=== PATIENT | female | born 1975 | race Caucasian/White ===

== ENCOUNTER 2019-01-09 09:48 | Day surgery (SDC) | payer MEDICAID, MEDICARE ==
[2019-01-09] MEDS ORDERED: Lactated Ringers 1,000 ML IV SCH (10:00)
[2019-01-09] MEDS ORDERED: Midazolam 1 MG/ML 2 ML SDV ONE (10:26)
[2019-01-09] MEDS ORDERED: Propofol 200 MG/20 ML SDV ONE (10:26)
[2019-01-09] MEDS ORDERED: fentaNYL 100 MCG/2 ML SDV ONE (10:26)
[2019-01-09] MEDS ORDERED: Glycopyrrolate 0.2 MG/ML 2 ML SDV IVPUSH ONE (10:30)
[2019-01-09] MEDS ORDERED: Cyanocobalamin (Vitamin B12) 1,000 MCG/ML SDV IM ONE (10:30)
[2019-01-09] MEDS ORDERED: MVI, Adult with Vitamin K 10 ML, Thiamine 100 MG, Chromium/Copper/Mang/Selen/Zn 1 ML in... IV ONE ×4 (11:00)
[2019-01-09] MEDS ORDERED: MVI, Adult with Vitamin K 10 ML, Thiamine 200 MG, Chromium/Copper/Mang/Selen/Zn 1 ML in... IV ONE ×4 (11:00)
[2019-01-09] MEDS ORDERED: Pantoprazole 40 MG Vial IVPUSH ONE (12:04)
--- NOTE | 2019-01-16 15:19 | OR ---
DATE OF PROCEDURE: 01/09/2019 PREOPERATIVE DIAGNOSIS: Probable stricture at gastrojejunostomy. POSTOPERATIVE DIAGNOSIS: Stricture and ulcer at gastrojejunostomy. OPERATIVE PROCEDURE: Upper gastrointestinal endoscopy with dilation of gastrojejunostomy (23910). ANESTHESIA: IV sedation. INDICATION FOR PROCEDURE: This is a 43-year-old female presenting with symptoms suggestive of stricturing at her gastrojejunostomy. She had a Pineda-en-Y gastric bypass on 12/01/2018. The plan is to proceed with upper GI endoscopy with dilation as indicated. Potential risks including bleeding and perforation were discussed, and the patient wishes to proceed. DETAILS OF PROCEDURE: The patient was taken to the operating room, placed in a left lateral decubitus position. IV sedation was administered after which the upper GI endoscope was passed orally through the length of the esophagus and into the gastric pouch. No retained food or fluid was noted. The patient was noted to have a moderately tight stricture at the gastrojejunostomy. This was associated with quite a bit in the way of ulceration on roughly half of the surface of the anastomosis extending somewhat onto the jejunum. A Bard gastrointestinal balloon catheter was then centered across the anastomosis and inflated to 36-[place] size. This was held in position for 1 minute, after which the balloon catheter was deflated and withdrawn. The scope could easily be passed through the anastomosis at this point with no complications noted. The scope was then withdrawn and procedure concluded. The plan will be to give the patient Protonix 40 mg IV in the recovery room and then begin Protonix 40 mg daily, and followup is arranged with Zohra Mijares PA-C, in [facility]. Clifford Rios MD /[id number]
== END 2019-01-09 13:05 | disposition home or self-care (01) ==
LOC: JP.SDS 09:48
PROVIDERS: ATTEND Surgery
DX: K91.89 Other postprocedural complications and disorders of digestive system (principal); E11.43 Type 2 diabetes mellitus with diabetic autonomic (poly)neuropathy; K59.09 Other constipation; A69.20 Lyme disease, unspecified; F43.10 Post-traumatic stress disorder, unspecified; Z91.040 Latex allergy status; Z98.84 Bariatric surgery status; Z79.82 Long term (current) use of aspirin; Z79.84 Long term (current) use of oral hypoglycemic drugs; Z79.899 Other long term (current) drug therapy
CPT/HCPCS: 43245; C9113; J2250; J2704; J3010; J3411; J3420; J3490; J7120

== ENCOUNTER 2019-01-20 07:46 | Observation (INO) | payer MEDICARE, MEDICAID ==
[~2019-01-20 07:46] MED LIST: Cyanocobalamin (Vitamin B12) 1,000 MCG/ML SDV IM ONE; Glycopyrrolate 0.2 MG/ML 2 ML SDV IVPUSH ONE; Lactated Ringers 1,000 ML IV SCH; MVI, Adult with Vitamin K 10 ML, Thiamine 200 MG, Chromium/Copper/Mang/Selen/Zn 1 ML in... IV ONE
[2019-01-20] MEDS ORDERED: Cyanocobalamin (Vitamin B12) 1,000 MCG/ML SDV IM ONE (08:00)
[2019-01-20] MEDS ORDERED: Lactated Ringers 1,000 ML IV SCH (08:00)
[2019-01-20] MEDS ORDERED: fentaNYL 100 MCG/2 ML SDV ONE (09:31)
[2019-01-20] MEDS ORDERED: Propofol 200 MG/20 ML SDV ONE (09:31)
[2019-01-20] MEDS ORDERED: Midazolam 1 MG/ML 2 ML SDV ONE (09:31)
[2019-01-20] MEDS ORDERED: MVI, Adult with Vitamin K 10 ML, Thiamine 200 MG, Chromium/Copper/Mang/Selen/Zn 1 ML in... IV ONE ×8 (10:00)
[2019-01-20] MEDS ORDERED: Scopolamine 1.5 MG Transdermal Patch TOP ONE (12:18)
[2019-01-20] MEDS: Glycopyrrolate 0.2 MG/ML 2 ML SDV IVPUSH ONE ×2 (13:04→15:18)
[2019-01-20] MEDS ORDERED: Ondansetron 4 MG/2 ML SDV IVPUSH PRN (14:11)
[2019-01-20] MEDS ORDERED: SCOPOLAMINE PATCH CHECK TOP SCH (14:12)
[2019-01-20] MEDS ORDERED: HYDROmorphone 2 MG Tab PO PRN (14:14)
[2019-01-20] MEDS ORDERED: Glucose Gel 15 GM in 37.5 GM Tube PO PRN (14:16)
[2019-01-20] MEDS ORDERED: Insulin Lispro 100 Unit/ML 3 ML KwikPen SUBCUT PRN (14:16)
[2019-01-20] MEDS ORDERED: 50% Dextrose in Water 50 ML Syringe IVPUSH PRN (14:16)
[2019-01-20] MEDS ORDERED: Glucagon,Human Recombinant 1 MG Vial IM PRN (14:16)
[2019-01-20] MEDS: MVI, Adult with Vitamin K 10 ML, Chromium/Copper/Mang/Selen/Zn 1 ML in Dextrose 5%-Lact... IV SCH ×3 (15:36)
[2019-01-20] MEDS: Pantoprazole 40 MG Vial IVPUSH SCH (20:16)
[2019-01-20] MEDS: Venlafaxine 75 MG Cap.ER PO SCH (20:17)
[2019-01-20] MEDS ORDERED: Dextrose 5%-Lactated Ringers 1,000 ML IV SCH (21:00)
[2019-01-20] MEDS ORDERED: Doxepin 10 MG Cap PO SCH (21:00)
[2019-01-21] MEDS: MVI, Adult with Vitamin K 10 ML, Chromium/Copper/Mang/Selen/Zn 1 ML in Dextrose 5%-Lact... IV SCH ×3 (01:49)
[2019-01-21] MEDS: Venlafaxine 75 MG Cap.ER PO SCH (08:54)
[2019-01-21] MEDS: Pantoprazole 40 MG Vial IVPUSH SCH (08:54)
[2019-01-21] MEDS ORDERED: Vilazodone 20 MG Tab PO SCH (09:00)
[2019-01-21] MEDS ORDERED: Lisinopril 5 MG Tab PO SCH (09:00)
[2019-01-23] MEDS ORDERED: Scopolamine 1.5 MG Transdermal Patch TOP SCH (10:00)
--- NOTE | 2019-01-23 14:00 | OR ---
DATE OF PROCEDURE: 01/20/2019 PREOPERATIVE DIAGNOSIS: Stricture at gastrojejunostomy. POSTOPERATIVE DIAGNOSIS: Stricture at gastrojejunostomy. PROCEDURE: Upper gastrointestinal endoscopy with dilation of gastrojejunostomy (50720). ANESTHESIA: IV sedation. INDICATION FOR PROCEDURE: This is a 43-year-old status post Pineda-en-Y gastric bypass presenting with stricturing at her gastrojejunostomy. Plan is to proceed with an upper GI endoscopy with dilation as indicated. Potential risks of the procedure including bleeding and perforation were discussed, and the patient wishes to proceed. DETAILS OF PROCEDURE: The patient was taken to the operating room and placed in a left lateral decubitus position. IV sedation was administered, after which the upper GI endoscope was passed orally through the length of the esophagus and into the gastric pouch. No retained food or fluid was noted. The patient was noted to have a quite tight stricture at the gastrojejunostomy. Previously noted ulcer now is essentially healed, but there was a quite tight stricture at the anastomosis. Using fluoroscopic surveillance, a Bard gastrointestinal catheter was centered across the anastomosis and inflated to 30-Romansh size and that was held in position for 1 minute, after which balloon catheter was deflated and withdrawn. The scope could easily then be passed through the anastomosis. No complications were noted. The patient was taken to the recovery room in satisfactory condition. The patient was quite strikingly dehydrated on admission and also quite anxious associated with not being able to take her psychiatric medications. She will therefore be admitted overnight for additional hydration and reinstatement of the psych medications. Clifford Rios MD /[id number]
--- NOTE | 2019-01-24 14:11 | DISCH ---
FINAL DIAGNOSES: 1. Strictured gastrojejunostomy. 2. Marked dehydration. 3. Anxiety related to misuse of psychiatric medications. 4. Type 2 diabetes mellitus, now in remission post gastric bypass. OPERATIVE PROCEDURE: Upper GI endoscopy with dilation of gastrojejunostomy on 01/20/19. HOSPITAL COURSE: This is a 43-year-old, presenting with fairly marked dehydration and inability to maintain much in the way of oral intake, due to stricture of gastrojejunostomy. She had a gastric bypass done in November as an open approach, due to large amount of adhesions due to previous surgeries. She presented with the above findings. This also had been preventing her from taking her psychiatric medications, and she was noted to be quite anxious. Given this, we decided to admit the patient to be sure we are getting adequate oral intake, and the patient will resume her medical management, as well as hopefully rehydrate the patient. Overnight, she has done well and then oral intake is satisfactory. Of note, she had been on metformin previously. She has been off metformin for a period of time, and her admitting blood sugar was 111 and the blood sugars in the postoperative period were 84 and 122, while the patient has been receiving D5 LR, as well as a clear liquid type diet, so it would appear that her diabetes is, at this point, essentially in remission, and we will have her stay off the metformin. Otherwise, she has a scopolamine patch on, which she will be instructed to remove on Wednesday. Otherwise, resume her usual medications. She will be instructed to stay on a step-2 diet for 7 days and then step-3 diet as tolerated. She will be following up with Zohra Mijares on 01/30/2019 at 9:30. The patient will likely need to have additional dilation or dilations of her gastrojejunostomy, and she is instructed to come n.p.o. and with a full service vending driver, if she feels tight at that time; otherwise, call us sooner if need be.
== END 2019-01-21 17:41 | disposition home or self-care (01) ==
LOC: JP.SDS 07:46 → JP.2SS 13:15 → UNDOADMOB 13:15 → JP.2SS 13:15 → JP.SDS 13:15 → JP.2SS 17:41 → UNDODISOB 01-21 09:50 → JP.2SS 01-21 17:41 → JP.SDS 01-21 17:41
PROVIDERS: ADMIT Surgery; ATTEND Surgery
DX: K91.89 Other postprocedural complications and disorders of digestive system (principal); E11.40 Type 2 diabetes mellitus with diabetic neuropathy, unspecified; Z98.84 Bariatric surgery status; F43.10 Post-traumatic stress disorder, unspecified
CPT/HCPCS: 36415; 43245; 80053; 82728; 82962; 83735; 84100; 85027; 94762; A9270; C9113; J2250; J2704; J3010; J3411; J3420; J3490; J7042; J7120

== ENCOUNTER 2019-02-01 09:43 | Day surgery (SDC) | payer MEDICARE ==
[2019-02-01] MEDS ORDERED: Lactated Ringers 1,000 ML IV SCH (10:30)
[2019-02-01] MEDS ORDERED: Cyanocobalamin (Vitamin B12) 1,000 MCG/ML SDV IM ONE (10:30)
[2019-02-01] MEDS ORDERED: Glycopyrrolate 0.2 MG/ML 2 ML SDV IVPUSH ONE (11:00)
[2019-02-01] MEDS ORDERED: fentaNYL 100 MCG/2 ML SDV ONE (11:11)
[2019-02-01] MEDS ORDERED: Propofol 200 MG/20 ML SDV ONE (11:11)
[2019-02-01] MEDS ORDERED: Midazolam 1 MG/ML 2 ML SDV ONE (11:11)
[2019-02-01] MEDS ORDERED: MVI, Adult with Vitamin K 10 ML, Thiamine 200 MG, Chromium/Copper/Mang/Selen/Zn 1 ML in... IV ONE ×4 (11:30)
[2019-02-01] MEDS ORDERED: Dexamethasone 4 MG/ML SDV ONE (11:33)
--- NOTE | 2019-02-08 13:37 | OR ---
DATE OF PROCEDURE: 02/01/2019 PREOPERATIVE DIAGNOSIS: Probable stricture at gastrojejunostomy. POSTOPERATIVE DIAGNOSIS: Tight stricture at gastrojejunostomy. OPERATIVE PROCEDURE: Upper GI endoscopy with dilation of gastrojejunostomy (97013). ANESTHESIA: IV sedation. INDICATIONS FOR PROCEDURE: This is a 43-year-old status post an open Pineda-en-Y gastric bypass on 12/01/2018, presenting with symptoms suggestive of stricturing at her gastrojejunostomy. Plan is to proceed with an upper GI endoscopy with dilation as indicated. Potential risks including bleeding and perforation were discussed, and the patient wishes to proceed. DETAILS OF PROCEDURE: The patient was taken to the operating room and placed in a left lateral decubitus position. IV sedation was administered, after which the upper GI endoscope was passed orally through the length of the esophagus and into the gastric pouch. The patient was found to have quite tight stricture at the gastrojejunostomy. No retained food or fluid was noted above the anastomosis. A Bard gastrointestinal catheter was then centered across the anastomosis and inflated to a 36-Georgian size. This was held in position for 1 minute, after which balloon catheter was deflated and withdrawn. Scope easily was then passed through the anastomosis. No complications were evident. Scope was then withdrawn and procedure concluded. There were no evident complications. Clifford Rios MD /[id number]
== END 2019-02-01 14:00 | disposition home or self-care (01) ==
LOC: JP.SDS 09:43
PROVIDERS: ATTEND Surgery
DX: K91.89 Other postprocedural complications and disorders of digestive system (principal); E11.9 Type 2 diabetes mellitus without complications; F32.9 Major depressive disorder, single episode, unspecified; F43.10 Post-traumatic stress disorder, unspecified; Z98.84 Bariatric surgery status
CPT/HCPCS: 43245; J1100; J2250; J2704; J3010; J3411; J3420; J3490; J7120

== ENCOUNTER 2019-02-13 09:47 | Inpatient (IN) | payer MEDICARE ==
[2019-02-13] MEDS ORDERED: Lactated Ringers 1,000 ML IV SCH (10:45)
[2019-02-13] MEDS ORDERED: Cyanocobalamin (Vitamin B12) 1,000 MCG/ML SDV IM ONE (10:45)
[2019-02-13] MEDS ORDERED: Propofol 200 MG/20 ML SDV ONE ×2 (11:06→14:17)
[2019-02-13] MEDS ORDERED: Midazolam 1 MG/ML 2 ML SDV ONE (11:06)
[2019-02-13] MEDS ORDERED: fentaNYL 100 MCG/2 ML SDV ONE (11:06)
[2019-02-13] MEDS ORDERED: MVI, Adult with Vitamin K 10 ML, Thiamine 200 MG, Chromium/Copper/Mang/Selen/Zn 1 ML in... IV ONE ×8 (11:45)
[2019-02-13] MEDS ORDERED: Lactated Ringers 0 ML ONE (12:16)
--- NOTE | 2019-02-13 12:41 | OR ---
DATE OF PROCEDURE: 02/13/2019 PREOPERATIVE DIAGNOSIS: Gastrojejunostomy stricture. POSTOPERATIVE DIAGNOSIS: Gastrojejunostomy stricture. PROCEDURE: Esophagogastrojejunoscopy with dilation of gastrojejunostomy with a 36-Armenian balloon. SURGEON: Leroy Fish MD. ANESTHESIA: IV anesthesia with monitored anesthesia care. INDICATION: This 43-year-old white female underwent a Pineda-en-Y gastric bypass for morbid obesity in November of this year. Since then, she has had four gastro- dilatations due to recurrent strictures. She again is unable to take down food, only liquids. She is referred for a gastro-dil. I counseled her for this, including risks and alternatives, and she gave her informed consent to proceed. DESCRIPTION OF PROCEDURE: The patient was placed in the left lateral decubitus position. IV anesthesia was administered by the Anesthesia Service. Time-out was held. The flexible video Olympus upper endoscope was passed through her mouth, down her esophagus, and into the gastric remnant. This was very small. The anastomosis was quite tight. The scope could not pass through it. Under fluoroscopy, we passed a balloon beyond it and blew it up for 1 minute. This with a 36-Armenian balloon. The balloon was deflated and removed. We were then able to pass the scope beyond it. She tolerated the procedure well and was taken from the operating room in a good condition. Leroy Fish MD /[id number]
[2019-02-13] MEDS ORDERED: Iopamidol 612 MG/ML 150 ML Bottle IV PRN (12:42)
[2019-02-13] MEDS ORDERED: Sodium Chloride 0.9% 10 ML Syringe FLUSH PRN (12:42)
--- NOTE | 2019-02-13 14:01 | CT ---
Chest Abdomen Pelvis w Cont CLINICAL HISTORY: Chest and neck pain TECHNIQUE: Thin section axial contiguous tomographic sections were taken through the chest after 100 mL bolus IV iodinated contrast administration. Coronal and sagittal images were reconstructed. Auto dosage reduction and iterative reconstruction techniques employed. FINDINGS: No infiltrates are seen. There is a 6 mm nonsolid appearing nodule in the right upper lobe on image #42 there is a punctate calcification in the left posterior costophrenic angle. The mediastinum shows no mass or adenopathy. No free air is seen. Impression: Small nodular density in the right upper lobe described above. Follow-up using Fleischner Society criteria recommended There is a large amount of free air under the hemidiaphragm Chest Abdomen Pelvis w Cont CLINICAL HISTORY: Neck and shoulder pain COMPARISON: None. TECHNIQUE: Axial tomographic images are obtained from the dome of the diaphragm to the pubic symphysis with IV contrast enhancement. No oral contrast was used. Auto dosage reduction and iterative reconstruction techniques employed. FINDINGS: There is a moderate amount of free intraperitoneal air anterior to the liver and near the diaphragmatic amada. There is no dissection of air into the mediastinum. Patient has had previous abdominal surgery. There is soft tissue density in the periumbilical region some of which may be scarring. There may be a small fluid collection associated with the surgical scar. There is a moderate-sized ventral hernia in the left lower quadrant containing colon. There is no evidence of incarceration. The liver has a normal size and shape. The gallbladder is dilated. There are some small stones. The spleen is enlarged. The pancreas shows no mass or inflammatory change.. The adrenal glands appear normal bilaterally. The kidneys show no mass, stones or hydronephrosis. The aorta shows no aneurysm. There is no suspicious retroperitoneal adenopathy. IMPRESSION: There is a moderate amount of free intraperitoneal air consistent with the perforated viscus Previous abdominal surgery with the soft tissue density just above the umbilicus. Much of this appears to be scarring. There may be a small central fluid collection Moderate-sized left lower quadrant ventral hernia containing predominantly colon. Dilated gallbladder with gallstones. No biliary ductal dilatation identified Dr. Wilkins was notified at the time of this dictation
[2019-02-13] MEDS ORDERED: Succinylcholine 200 MG/10 ML MDV ONE (14:17)
[2019-02-13] MEDS ORDERED: Rocuronium 50 MG/5 ML Vial ONE (14:17)
[2019-02-13] MEDS ORDERED: Glycopyrrolate 0.2 MG/ML 5 ML MDV ONE (14:17)
[2019-02-13] MEDS ORDERED: Neostigmine Methylsulfate 1 MG/ML 5 ML Syringe ONE (14:17)
[2019-02-13] MEDS ORDERED: Dexamethasone 4 MG/ML SDV ONE (14:17)
[2019-02-13] MEDS ORDERED: Ondansetron 4 MG/2 ML SDV ONE (14:17)
[2019-02-13] MEDS ORDERED: fentaNYL 250 MCG/5 ML SDV ONE ×2 (14:18→14:57)
[2019-02-13] MEDS ORDERED: ceFAZolin 2 GM in Premix Bag 1 BAG IV ONE (14:30)
[2019-02-13] MEDS ORDERED: hydrOXYzine HCl 100 MG/2 ML SDV IM ONE (16:28)
[2019-02-13] MEDS ORDERED: Ondansetron 4 MG/2 ML SDV IVPUSH PRN (17:00)
[2019-02-13] MEDS ORDERED: hydrOXYzine HCl 100 MG/2 ML SDV IM PRN (17:34)
[2019-02-13] MEDS ORDERED: HYDROmorphone/Normal Saline 15 MG/30 ML PCA IV SCH (17:45)
[2019-02-13] MEDS ORDERED: Naloxone 0.4 MG/ML SDV IV PRN (17:48)
[2019-02-13] MEDS: D5 1/2 NS w/ 20 mEq/L KCl 1,000 ML IV SCH (18:46)
[2019-02-13] MEDS: Pantoprazole 40 MG Vial IVPUSH SCH (18:46)
[2019-02-14] MEDS: D5 1/2 NS w/ 20 mEq/L KCl 1,000 ML IV SCH ×3 (02:45→17:57)
[2019-02-14] MEDS ORDERED: HYDROmorphone/Normal Saline 15 MG/30 ML PCA IV PRN (07:09)
--- NOTE | 2019-02-14 07:52 | OR ---
DATE OF PROCEDURE: 02/13/2019 PREOPERATIVE DIAGNOSIS: Pneumoperitoneum after gastro dilatation. POSTOPERATIVE DIAGNOSES: Multiple adhesions, pneumoperitoneum after gastro dilatation. PROCEDURE: Laparoscopic converted to open laparotomy with lysis of adhesions, Tisseel fibrin sealant application, drainage. SURGEON: Leroy Fish MD ANESTHESIA: General endotracheal. INDICATION: This 43-year-old white female underwent a Pineda-en-Y gastric bypass in November of this year for morbid obesity. Since then, she has had 4 prior gastro dilatations. She is referred today for another one of these. She is unable to keep any solid food down. She retches it up. Liquid is starting to cause her problems, although she is basically able to get liquids down. A request was made for gastro dilatation, I counseled her for this, including risks and alternatives, and she gave her informed consent to proceed. We then proceeded with a gastro dilatation, and it was quite an easy procedure. This was so tight, the scope could not go through. We performed a 36-[place] balloon dilatation. In the recovery room, she complained of shoulder pain and neck pain. Her abdomen felt fine. We obtained a CT scan of her chest, abdomen, and pelvis that showed free air in her abdomen. There was no mediastinal air. She was taken to the operating room for an abdominal exploration, hopefully laparoscopically, although she was counseled for possible laparotomy, and she gave her informed consent to proceed. DESCRIPTION OF PROCEDURE: After adequate general endotracheal anesthesia was obtained, a Xiao catheter was placed, and she was placed in the low lithotomy. Her abdomen was prepped and draped in the usual sterile fashion. She has a large midline incision, and she has had a prior hysterectomy for uterine cancer with 2 attempts at incisional hernia repair. The CAT scan shows she has a large incisional hernia in her lower abdomen. Time-out was held. An incision was made to the left of the midline, and then through this, a 10 mm port was placed using the Optiview technique. The camera was introduced into the abdomen and the abdomen was insufflated to a pressure of 15 mmHg with carbon dioxide. No evidence of intraabdominal injury was seen. We noted that we were below the [place] stomach. There were a great deal of adhesions present. We attempted to negotiate up into the upper abdomen. We did manage to see the spleen at one point, but it was clear we were not going to be able to do this laparoscopically, as there would be no place safe to place additional ports. The port was then removed, and an upper midline incision was made. This was carried deep to the fascia using Bovie cautery. The fascia was incised, and the underlying peritoneum was elevated and incised. The peritoneal and fascial incisions were extended the length of the skin incision using Bovie cautery, while protecting underlying structures. We dissected a lot of adhesions in the upper abdomen. We could not see any evidence of a perforation. It was very difficult to visualize. We filled the abdomen with saline and Anesthesia injected air into the esophagus and we saw no leakage. With this, we aspirated saline from the abdomen. We placed Tisseel fibrin sealant up in her upper abdomen around the Pnieda-Y limb. The omentum, which had been dissected free, was placed in the upper abdomen and held there with 3-0 Vicryl suture. Two Rafat-El drains were obtained and brought out on each side through separate incisions and placed up on each side in the upperabdomen of the Pineda limb. The incision was then closed with a running stitch of #2 Vicryl used to approximate the fascia. The incision was irrigated and dried. Skin mame were placed to approximate the skin. The anesthesia was reversed. She was extubated and brought to recovery room in fair condition. Leroy Fish MD /[id number]
[2019-02-14] MEDS ORDERED: LORazepam 2 MG/ML SDV IVPUSH PRN (13:10)
--- NOTE | 2019-02-14 16:27 | PCM.SURGPN ---
- General Info Date of Service: 02/14/19 Date of Surgery/Procedure: 02/13/19 POD#: 1 Post-Op Diagnosis: Perforated small bowel Functional Status: Reports: Ambulating, Urinating. Denies: Pain Controlled ( She has pain, but not too bad. ), Tolerating Diet (NPO) - Review of Systems General: Denies: Fever, Chills HEENT: Reports: No Symptoms Pulmonary: Reports: No Symptoms Cardiovascular: Reports: No Symptoms Gastrointestinal: Reports: Abdominal Pain (Epigastrium and left lower quadrant ( at laparoscopy port)). Denies: Flatus, Nausea, Vomiting Genitourinary: Reports: No Symptoms (Wants Xiao out) Musculoskeletal: Reports: No Symptoms Skin: Reports: No Symptoms Neurological: Reports: No Symptoms Psychiatric: Reports: No Symptoms - Patient Data Vitals - Most Recent: Last Vital Signs Temp 98.6 F 02/14/19 15:40 Pulse 81 02/14/19 15:40 Resp 18 02/14/19 15:40 BP 116/72 02/14/19 15:40 Pulse Ox 100 02/14/19 15:40 Weight - Most Recent: 251 lb 15.99 oz I&O - Last 24 Hours: Intake & Output 02/14/19 02/14/19 02/14/19 06:59 14:59 22:59 Intake Total 1405 Output Total 925 405 Balance 480 -405 Lab Results Last 24 Hrs: Laboratory Results - last 24 hr 02/14/19 02/14/19 Range/Units 04:30 04:30 WBC 9.9 (4.5-11.0) K/uL RBC 4.62 (3.30-5.50) M/uL Hgb 13.0 (12.0-15.0) g/dL Hct 41.0 (36.0-48.0) % MCV 89 (80-98) fL MCH 28 (27-31) pg MCHC 32 (32-36) % Plt Count 237 (150-400) K/uL Sodium 139 L (140-148) mmol/L Potassium 4.2 (3.6-5.2) mmol/L Chloride 104 (100-108) mmol/L Carbon Dioxide 28 (21-32) mmol/L Anion Gap 11.2 (5.0-14.0) mmol/L BUN 16 (7-18) mg/dL Creatinine 0.9 (0.6-1.0) mg/dL Est Cr Clr Drug Dosing 72.53 mL/min Estimated GFR (MDRD) > 60 (>60) Glucose 190 H (74-106) mg/dL Calcium 8.9 (8.5-10.1) mg/dL Med Orders - Current: Current Medications Hydromorphone HCl (Dilaudid Trade Mark Examiner 15 Mg In Ns 30 Ml) 0 mg IV ASDIRECTED PRN; Protocol PRN Reason: Pain Hydroxyzine HCl (Vistaril) 50 - 75 mg IM Q6H PRN PRN Reason: Pain Lactated Ringer's (Ringers, Lactated) 1,000 mls @ 999 mls/hr IV ASDIRECTED [facility] Last Admin: 02/13/19 10:29 Dose: 999 mls/hr Potassium Chloride/Dextrose/Sod Cl (D5 1/2 Ns W/ 20 Meq/L Kcl) 1,000 mls @ 125 mls/hr IV ASDIRECTED [facility] Last Admin: 02/14/19 10:34 Dose: 125 mls/hr Lorazepam (Ativan) 1 mg IVPUSH Q4H PRN PRN Reason: Anxiety Naloxone HCl (Narcan) 0.1 mg IV ASDIRECTED PRN PRN Reason: decreased respiratory rate Ondansetron HCl (Zofran) 4 mg IVPUSH Q6H PRN PRN Reason: Nausea/Vomiting Pantoprazole Sodium (Protonix Iv) 40 mg IVPUSH Q24H [facility] Last Admin: 02/13/19 18:46 Dose: 40 mg Discontinued Medications Cyanocobalamin (Vitamin B12) 1,000 mcg IM ONETIME ONE Stop: 02/13/19 10:46 Last Admin: 02/13/19 10:30 Dose: 1,000 mcg Dexamethasone (Dexamethasone) Confirm Administered Dose 4 mg .ROUTE .STK-MED ONE Stop: 02/13/19 14:18 Fentanyl (Sublimaze) Confirm Administered Dose 100 mcg .ROUTE .STK-MED ONE Stop: 02/13/19 11:07 Fentanyl (Sublimaze) Confirm Administered Dose 250 mcg .ROUTE .STK-MED ONE Stop: 02/13/19 14:19 Fentanyl (Sublimaze) Confirm Administered Dose 250 mcg .ROUTE .STK-MED ONE Stop: 02/13/19 14:58 Glycopyrrolate (Robinul) Confirm Administered Dose 1 mg .ROUTE .STK-MED ONE Stop: 02/13/19 14:18 Hydromorphone HCl (Dilaudid Trade Mark Examiner 15 Mg In Ns 30 Ml) 15 mg IV ASDIRECTED [facility]; Protocol Last Admin: 02/13/19 18:05 Dose: 15 mg Hydroxyzine HCl (Vistaril) 100 mg IM ONETIME ONE Stop: 02/13/19 16:29 Last Admin: 02/13/19 16:32 Dose: 100 mg Multivitamins/Minerals 10 ml/Thiamine HCl 200 mg/ Chromium/Copper/Manganese/ Seleni/Zn 1 ml/ Lactated Ringer's 1,013 mls @ 500 mls/hr IV ONETIME ONE Stop: 02/13/19 13:46 Last Admin: 02/13/19 11:24 Dose: 500 mls/hr Lactated Ringer's (Ringers, Lactated) Confirm Administered Dose 1,000 mls @ as directed .ROUTE .STK-MED ONE Stop: 02/13/19 12:17 Sodium Chloride (Normal Saline) 85 mls @ 3.5 mls/sec IV ASDIRECTED [facility] Stop: 02/13/19 12:46 Last Admin: 02/13/19 13:12 Dose: 3.5 mls/sec Cefazolin Sodium/Dextrose 2 gm (/ Premix) 50 mls @ 100 mls/hr IV ONETIME ONE Stop: 02/13/19 14:59 Last Admin: 02/13/19 14:23 Dose: 100 mls/hr Iopamidol (Isovue-300 (61%)) 150 ml IV . DIRECTED PRN PRN Reason: RADIOLOGY EXAM Stop: 02/14/19 12:43 Last Admin: 02/13/19 13:12 Dose: 150 ml Midazolam HCl (Versed 1 Mg/Ml) Confirm Administered Dose 2 mg .ROUTE .STK-MED ONE Stop: 02/13/19 11:07 Neostigmine Methylsulfate (Neostigmine) Confirm Administered Dose 5 mg .ROUTE .STK-MED ONE Stop: 02/13/19 14:18 Ondansetron HCl (Zofran) Confirm Administered Dose 4 mg .ROUTE .STK-MED ONE Stop: 02/13/19 14:18 Propofol (Diprivan 20 Ml) Confirm Administered Dose 200 mg .ROUTE .STK-MED ONE Stop: 02/13/19 11:07 Propofol (Diprivan 20 Ml) Confirm Administered Dose 200 mg .ROUTE .STK-MED ONE Stop: 02/13/19 14:18 Rocuronium [place] (Zemuron) Confirm Administered Dose 50 mg .ROUTE .STK-MED ONE Stop: 02/13/19 14:18 Sodium Chloride (Saline Flush) 10 ml FLUSH ONETIME PRN PRN Reason: per radiology protocol Stop: 02/13/19 12:43 Last Admin: 02/13/19 13:10 Dose: 10 ml Succinylcholine Chloride (Quelicin) Confirm Administered Dose 200 mg .ROUTE .STK -MED ONE Stop: 02/13/19 14:18 - Exam Wound/Incisions: Healing Well, Dressing Dry and Intact Quality Assessment: Supplemental Oxygen, Urine Catheter (Removed. ) General: Alert, Oriented, Cooperative, No Acute Distress (Was distressed earlier when walking, wants Effexor. ) Lungs: Clear to Auscultation, Normal Respiratory Effort Cardiovascular: Regular Rate, Regular Rhythm GI/Abdominal Exam: Abnormal Bowel Sounds (Quiet. ). No: Normal Bowel Sounds Extremities: Normal Inspection Skin: Warm, Dry, Intact Psy/Mental Status: Alert, Normal Affect, Normal Mood (Now, earlier was crying. ) - Problem List & Annotations (1) Status post exploratory laparotomy SNOMED Code(s): 584584335, 19978798, 349571404 Code(s): Z98.890 - OTHER SPECIFIED POSTPROCEDURAL STATES Status: Acute Current Visit: Yes Annotation/Comment:: Lysis of adhesion, - Problem List Review Problem List Initiated/Reviewed/Updated: Yes - My Orders Last 24 Hours: Active Orders 24 hr Category Date Time Status Patient Status [ADT] Routine ADT 02/13/19 17:00 Active Ambulate [RC] ASDIRECTED Care 02/13/19 17:00 Active Antiembolic Devices [RC] .Routine Care 02/13/19 17:05 Active Dorsiflex/Plantar flex x 10 [RC] QSHIFT Care 02/13/19 17:00 Active Drain Management [RC] QSHIFT Care 02/13/19 17:03 Active Head of Bed Elevation [RC] CONTINUOUS Care 02/13/19 17:00 Active Intake and Output [RC] .PRN Care 02/13/19 17:02 Active Notify Provider Intake and Out [RC] .PRN Care 02/13/19 17:03 Active Notify Provider Vital Signs [RC] .PRN Care 02/13/19 17:02 Active Oxygen Therapy [RC] .PRN Care 02/13/19 17:00 Active Pneumonia Education [RC] UPON Care 02/13/19 17:00 Active Pulse Oximetry [RC] CONTINUOUS Care 02/13/19 17:03 Active Turn, Cough, Deep Breathe [RC] Q1HWA Care 02/13/19 17:00 Active Up With Assistance [RC] ASDIRECTED Care 02/13/19 17:00 Active Up to Chair [RC] TIDMEALS Care 02/13/19 17:00 Active VTE/DVT Education [RC] Click to Edit Care 02/13/19 17:05 Active Vital Signs [RC] Q4H Care 02/13/19 17:00 Active Consult to Diabetic Nurse Specialist [CONS] Routine Cons 02/13/19 17:12 Active Respiratory Care Assess and Treatment [CONS] Routine Cons 02/13/19 17:00 Active Nothing Per Oral Diet [DIET] Diet 02/13/19 Dinner Active BASIC METABOLIC PANEL,BMP [CHEM] DAILY Lab 02/15/19 05:11 Ordered BASIC METABOLIC PANEL,BMP [CHEM] DAILY Lab 02/16/19 05:11 Ordered BASIC METABOLIC PANEL,BMP [CHEM] DAILY Lab 02/17/19 05:11 Ordered BASIC METABOLIC PANEL,BMP [CHEM] DAILY Lab 02/18/19 05:11 Ordered CBC W/O DIFF,HEMOGRAM [HEME] DAILY Lab 02/15/19 05:11 Ordered CBC W/O DIFF,HEMOGRAM [HEME] DAILY Lab 02/16/19 05:11 Ordered CBC W/O DIFF,HEMOGRAM [HEME] DAILY Lab 02/17/19 05:11 Ordered CBC W/O DIFF,HEMOGRAM [HEME] DAILY Lab 02/18/19 05:11 Ordered D5 1/2 NS w/ 20 mEq/L KCl 1,000 ml Med 02/13/19 17:15 Active IV ASDIRECTED HYDROmorphone/Normal Saline [Dilaudid SURGICAL GARMENT ASSEMBLY SUPERVISOR 15 MG in NS Med 02/14/19 07:09 Active 30 ML] 0 mg IV ASDIRECTED PRN LORazepam [Ativan] Med 02/14/19 13:10 Active 1 mg IVPUSH Q4H PRN Naloxone [Narcan] Med 02/13/19 17:48 Active 0.1 mg IV ASDIRECTED PRN Ondansetron [Zofran] Med 02/13/19 17:00 Active 4 mg IVPUSH Q6H PRN Pantoprazole [ProTONIX IV] Med 02/13/19 18:00 Active 40 mg IVPUSH Q24H hydrOXYzine HCl [Vistaril] Med 02/13/19 17:34 Active 50 - 75 mg IM Q6H PRN Abdominal Binder [OM.PC] Per Unit Routine Oth 02/13/19 17:02 Ordered DVT/VTE Prophylaxis Reflex [OM.PC] Per Unit Routine Oth 02/13/19 17:05 Ordered Sequential Compression Device [OM.PC] Routine Oth 02/13/19 17:00 Ordered Resuscitation Status Routine Resus Stat 02/13/19 17:00 Ordered Medication Orders Hydromorphone HCl (Dilaudid Trade Mark Examiner 15 Mg In Ns 30 Ml) 0 mg IV ASDIRECTED PRN; Protocol PRN Reason: Pain Hydroxyzine HCl (Vistaril) 50 - 75 mg IM Q6H PRN PRN Reason: Pain Lactated Ringer's (Ringers, Lactated) 1,000 mls @ 999 mls/hr IV ASDIRECTED [facility] Last Admin: 02/13/19 10:29 Dose: 999 mls/hr Potassium Chloride/Dextrose/Sod Cl (D5 1/2 Ns W/ 20 Meq/L Kcl) 1,000 mls @ 125 mls/hr IV ASDIRECTED [facility] Last Admin: 02/14/19 10:34 Dose: 125 mls/hr Infusion: 02/14/19 10:34 Dose: 125 mls/hr Admin: 02/14/19 02:45 Dose: 125 mls/hr Infusion: 02/14/19 02:45 Dose: 125 mls/hr Admin: 02/13/19 18:46 Dose: 125 mls/hr Lorazepam (Ativan) 1 mg IVPUSH Q4H PRN PRN Reason: Anxiety Naloxone HCl (Narcan) 0.1 mg IV ASDIRECTED PRN PRN Reason: decreased respiratory rate Ondansetron HCl (Zofran) 4 mg IVPUSH Q6H PRN PRN Reason: Nausea/Vomiting Pantoprazole Sodium (Protonix Iv) 40 mg IVPUSH Q24H [facility] Last Admin: 02/13/19 18:46 Dose: 40 mg - Assessment Assessment (Free Text/Narrative):: WBC normal and no fever. She looks well. She was upset earlier as she can not have her Effexor and we have no substitute IV. - Plan Plan (Free Text/Narrative):: Trial of Ativan PRN. D/C Dameon (done). Continue NPO.
[2019-02-14] MEDS: Pantoprazole 40 MG Vial IVPUSH SCH (17:57)
[2019-02-14] MEDS: Piperacillin/Tazobactam 3.375 GM in Sodium Chloride 0.9% 50 ML IV SCH (22:43)
[2019-02-15] MEDS: diphenhydrAMINE 50 MG/ML SDV IVPUSH PRN ×2 (00:25→05:13)
[2019-02-15] MEDS: D5 1/2 NS w/ 20 mEq/L KCl 1,000 ML IV SCH ×2 (02:39→21:21)
[2019-02-15] MEDS: Piperacillin/Tazobactam 3.375 GM in Sodium Chloride 0.9% 50 ML IV SCH (03:40)
[2019-02-15] MEDS: Piperacillin/Tazobactam/Dext 3.375 GM in Premix Bag 1 BAG IV SCH ×3 (09:41→22:17)
--- NOTE | 2019-02-15 13:52 | PCM.SURGPN ---
- General Info Date of Service: 02/15/19 Date of Surgery/Procedure: 02/13/19 POD#: 2 Post-Op Diagnosis: Perforated gastrojejunostomy. Functional Status: Reports: Pain Controlled, Ambulating, Urinating - Review of Systems General: Reports: Other (Itching. Pain is less) HEENT: Reports: No Symptoms Pulmonary: Reports: No Symptoms Cardiovascular: Reports: No Symptoms Gastrointestinal: Denies: Flatus Genitourinary: Reports: No Symptoms Musculoskeletal: Reports: No Symptoms Skin: Reports: No Symptoms Neurological: Reports: No Symptoms Psychiatric: Reports: No Symptoms, Other (Understands that we have no IV substitute for Effexor.) - Patient Data Vitals - Most Recent: Last Vital Signs Temp 98.2 F 02/15/19 11:03 Pulse 89 02/15/19 11:03 Resp 16 02/15/19 11:03 BP 109/69 02/15/19 11:03 Pulse Ox 91 L 02/15/19 12:29 Weight - Most Recent: 251 lb 15.99 oz I&O - Last 24 Hours: Intake & Output 02/14/19 02/15/19 02/15/19 22:59 06:59 14:59 Intake Total 1765 1293 50 Output Total 445 880 440 Balance 1320 413 -390 Lab Results Last 24 Hrs: Laboratory Results - last 24 hr 02/14/19 02/15/19 02/15/19 Range/Units 22:00 05:56 05:56 WBC 9.6 (4.5-11.0) K/uL RBC 4.59 (3.30-5.50) M/uL Hgb 13.1 (12.0-15.0) g/dL Hct 41.9 (36.0-48.0) % MCV 91 (80-98) fL MCH 29 (27-31) pg MCHC 31 L (32-36) % Plt Count 307 (150-400) K/uL Sodium 139 L (140-148) mmol/L Potassium 4.0 (3.6-5.2) mmol/L Chloride 106 (100-108) mmol/L Carbon Dioxide 27 (21-32) mmol/L Anion Gap 10.0 (5.0-14.0) mmol/L BUN 7 D (7-18) mg/dL Creatinine 1.1 H (0.6-1.0) mg/dL Est Cr Clr Drug Dosing 59.24 mL/min Estimated GFR (MDRD) 54 L (>60) Glucose 165 H (74-106) mg/dL Calcium 9.0 (8.5-10.1) mg/dL Urine Color Yellow Urine Appearance Cloudy Urine pH 5.0 (4.5-8.0) Ur Specific [place] 1.015 (1.008-1.030) Urine Protein Negative (NEGATIVE) mg/dL Urine Glucose (UA) Normal (NEGATIVE) mg/dL Urine Ketones Negative (NEGATIVE) mg/dL Urine Occult Blood Negative (NEGATIVE) Urine Nitrite Negative (NEGATIVE) Urine Bilirubin Negative (NEGATIVE) Urine Urobilinogen Normal (NORMAL) mg/dL Ur Leukocyte Esterase Negative (NEGATIVE) Urine RBC 0-5 (0-5) Urine WBC 0-5 (0-5) Ur Epithelial Cells Few Amorphous Sediment Not seen Urine Bacteria Few Urine Mucus Moderate Med Orders - Current: Current Medications Diphenhydramine HCl (Benadryl) 25 - 50 mg IVPUSH Q4H PRN PRN Reason: Itching Last Admin: 02/15/19 05:13 Dose: 50 mg Hydromorphone HCl (Dilaudid Activity Therapy Teacher 15 Mg In Ns 30 Ml) 0 mg IV ASDIRECTED PRN; Protocol PRN Reason: Pain Last Admin: 02/15/19 10:09 Dose: 15 mg Hydroxyzine HCl (Vistaril) 50 - 75 mg IM Q6H PRN PRN Reason: Pain Lactated Ringer's (Ringers, Lactated) 1,000 mls @ 999 mls/hr IV ASDIRECTED [facility] Last Admin: 02/13/19 10:29 Dose: 999 mls/hr Potassium Chloride/Dextrose/Sod Cl (D5 1/2 Ns W/ 20 Meq/L Kcl) 1,000 mls @ 125 mls/hr IV ASDIRECTED [facility] Last Admin: 02/15/19 02:39 Dose: 125 mls/hr Piperacillin/Tazobactam/ (Dextrose 3.375 gm/ Premix) 50 mls @ 100 mls/hr IV Q6H [facility] Last Admin: 02/15/19 09:41 Dose: 100 mls/hr Lorazepam (Ativan) 1 mg IVPUSH Q4H PRN PRN Reason: Anxiety Naloxone HCl (Narcan) 0.1 mg IV ASDIRECTED PRN PRN Reason: decreased respiratory rate Ondansetron HCl (Zofran) 4 mg IVPUSH Q6H PRN PRN Reason: Nausea/Vomiting Pantoprazole Sodium (Protonix Iv) 40 mg IVPUSH Q24H [facility] Last Admin: 02/14/19 17:57 Dose: 40 mg Discontinued Medications Cyanocobalamin (Vitamin B12) 1,000 mcg IM ONETIME ONE Stop: 02/13/19 10:46 Last Admin: 02/13/19 10:30 Dose: 1,000 mcg Dexamethasone (Dexamethasone) Confirm Administered Dose 4 mg .ROUTE .STK-MED ONE Stop: 02/13/19 14:18 Fentanyl (Sublimaze) Confirm Administered Dose 100 mcg .ROUTE .STK-MED ONE Stop: 02/13/19 11:07 Fentanyl (Sublimaze) Confirm Administered Dose 250 mcg .ROUTE .STK-MED ONE Stop: 02/13/19 14:19 Fentanyl (Sublimaze) Confirm Administered Dose 250 mcg .ROUTE .STK-MED ONE Stop: 02/13/19 14:58 Glycopyrrolate (Robinul) Confirm Administered Dose 1 mg .ROUTE .STK-MED ONE Stop: 02/13/19 14:18 Hydromorphone HCl (Dilaudid Activity Therapy Teacher 15 Mg In Ns 30 Ml) 15 mg IV ASDIRECTED [facility]; Protocol Last Admin: 02/13/19 18:05 Dose: 15 mg Hydroxyzine HCl (Vistaril) 100 mg IM ONETIME ONE Stop: 02/13/19 16:29 Last Admin: 02/13/19 16:32 Dose: 100 mg Multivitamins/Minerals 10 ml/Thiamine HCl 200 mg/ Chromium/Copper/Manganese/ Seleni/Zn 1 ml/ Lactated Ringer's 1,013 mls @ 500 mls/hr IV ONETIME ONE Stop: 02/13/19 13:46 Last Admin: 02/13/19 11:24 Dose: 500 mls/hr Lactated Ringer's (Ringers, Lactated) Confirm Administered Dose 1,000 mls @ as directed .ROUTE .STK-MED ONE Stop: 02/13/19 12:17 Sodium Chloride (Normal Saline) 85 mls @ 3.5 mls/sec IV ASDIRECTED [facility] Stop: 02/13/19 12:46 Last Admin: 02/13/19 13:12 Dose: 3.5 mls/sec Cefazolin Sodium/Dextrose 2 gm (/ Premix) 50 mls @ 100 mls/hr IV ONETIME ONE Stop: 02/13/19 14:59 Last Admin: 02/13/19 14:23 Dose: 100 mls/hr Piperacillin Sod/Tazobactam (Sod 3.375 gm/ Sodium Chloride) 50 mls @ 100 mls/ hr IV Q6H [facility] Last Admin: 02/15/19 03:40 Dose: 100 mls/hr Iopamidol (Isovue-300 (61%)) 150 ml IV . DIRECTED PRN PRN Reason: RADIOLOGY EXAM Stop: 02/14/19 12:43 Last Admin: 02/13/19 13:12 Dose: 150 ml Midazolam HCl (Versed 1 Mg/Ml) Confirm Administered Dose 2 mg .ROUTE .STK-MED ONE Stop: 02/13/19 11:07 Neostigmine Methylsulfate (Neostigmine) Confirm Administered Dose 5 mg .ROUTE .STK-MED ONE Stop: 02/13/19 14:18 Ondansetron HCl (Zofran) Confirm Administered Dose 4 mg .ROUTE .STK-MED ONE Stop: 02/13/19 14:18 Propofol (Diprivan 20 Ml) Confirm Administered Dose 200 mg .ROUTE .STK-MED ONE Stop: 02/13/19 11:07 Propofol (Diprivan 20 Ml) Confirm Administered Dose 200 mg .ROUTE .STK-MED ONE Stop: 02/13/19 14:18 Rocuronium [place] (Zemuron) Confirm Administered Dose 50 mg .ROUTE .STK-MED ONE Stop: 02/13/19 14:18 Sodium Chloride (Saline Flush) 10 ml FLUSH ONETIME PRN PRN Reason: per radiology protocol Stop: 02/13/19 12:43 Last Admin: 02/13/19 13:10 Dose: 10 ml Succinylcholine Chloride (Quelicin) Confirm Administered Dose 200 mg .ROUTE .STK -MED ONE Stop: 02/13/19 14:18 - Exam Wound/Incisions: Healing Well Quality Assessment: DVT Prophylaxis General: Alert, Oriented, Cooperative, No Acute Distress (Much better today.) Lungs: Clear to Auscultation Cardiovascular: Regular Rate GI/Abdominal Exam: Abnormal Bowel Sounds (Hypoactive) Extremities: Normal Inspection Skin: Warm, Dry, Intact Neurological: No New Focal Deficit Psy/Mental Status: Alert, Normal Affect, Normal Mood (Mood is much improved. ) - Problem List & Annotations (1) Status post exploratory laparotomy SNOMED Code(s): 603858877, 53164307, 580611935 Code(s): Z98.890 - OTHER SPECIFIED POSTPROCEDURAL STATES Status: Acute Current Visit: Yes Annotation/Comment:: Lysis of adhesion, - Problem List Review Problem List Initiated/Reviewed/Updated: Yes - My Orders Last 24 Hours: Active Orders 24 hr Category Date Time Status May Shower [RC] ASDIRECTED Care 02/15/19 09:32 Active BASIC METABOLIC PANEL,BMP [CHEM] DAILY Lab 02/16/19 05:11 Ordered BASIC METABOLIC PANEL,BMP [CHEM] DAILY Lab 02/17/19 05:11 Ordered BASIC METABOLIC PANEL,BMP [CHEM] DAILY Lab 02/18/19 05:11 Ordered CBC W/O DIFF,HEMOGRAM [HEME] DAILY Lab 02/16/19 05:11 Ordered CBC W/O DIFF,HEMOGRAM [HEME] DAILY Lab 02/17/19 05:11 Ordered CBC W/O DIFF,HEMOGRAM [HEME] DAILY Lab 02/18/19 05:11 Ordered CULTURE BLOOD [BC] Urgent Lab 02/14/19 21:35 Received CULTURE BLOOD [BC] Urgent Lab 02/14/19 21:45 Received LORazepam [Ativan] Med 02/14/19 13:10 Active 1 mg IVPUSH Q4H PRN Piperacillin/Tazobactam/Dext [Zosyn in Dextrose Iso- Med 02/15/19 10:00 Active Osmotic 3.375 GM] 3.375 gm Premix Bag 1 bag IV Q6H diphenhydrAMINE [Benadryl] Med 02/14/19 21:34 Active 25 - 50 mg IVPUSH Q4H PRN Blood Culture x2 Reflex Set [OM.PC] Urgent Oth 02/14/19 21:31 Ordered Medication Orders Diphenhydramine HCl (Benadryl) 25 - 50 mg IVPUSH Q4H PRN PRN Reason: Itching Last Admin: 02/15/19 05:13 Dose: 50 mg Admin: 02/15/19 00:25 Dose: 50 mg Hydromorphone HCl (Dilaudid Activity Therapy Teacher 15 Mg In Ns 30 Ml) 0 mg IV ASDIRECTED PRN; Protocol PRN Reason: Pain Last Admin: 02/15/19 10:09 Dose: 15 mg Hydroxyzine HCl (Vistaril) 50 - 75 mg IM Q6H PRN PRN Reason: Pain Lactated Ringer's (Ringers, Lactated) 1,000 mls @ 999 mls/hr IV ASDIRECTED [facility] Last Admin: 02/13/19 10:29 Dose: 999 mls/hr Potassium Chloride/Dextrose/Sod Cl (D5 1/2 Ns W/ 20 Meq/L Kcl) 1,000 mls @ 125 mls/hr IV ASDIRECTED [facility] Last Admin: 02/15/19 02:39 Dose: 125 mls/hr Infusion: 02/15/19 01:57 Dose: 125 mls/hr Admin: 02/14/19 17:57 Dose: 125 mls/hr Infusion: 02/14/19 17:57 Dose: 125 mls/hr Admin: 02/14/19 10:34 Dose: 125 mls/hr Infusion: 02/14/19 10:34 Dose: 125 mls/hr Admin: 02/14/19 02:45 Dose: 125 mls/hr Infusion: 02/14/19 02:45 Dose: 125 mls/hr Admin: 02/13/19 18:46 Dose: 125 mls/hr Piperacillin/Tazobactam/ (Dextrose 3.375 gm/ Premix) 50 mls @ 100 mls/hr IV Q6H [facility] Last Admin: 02/15/19 09:41 Dose: 100 mls/hr Lorazepam (Ativan) 1 mg IVPUSH Q4H PRN PRN Reason: Anxiety Naloxone HCl (Narcan) 0.1 mg IV ASDIRECTED PRN PRN Reason: decreased respiratory rate Ondansetron HCl (Zofran) 4 mg IVPUSH Q6H PRN PRN Reason: Nausea/Vomiting Pantoprazole Sodium (Protonix Iv) 40 mg IVPUSH Q24H [facility] Last Admin: 02/14/19 17:57 Dose: 40 mg Admin: 02/13/19 18:46 Dose: 40 mg - Assessment Assessment (Free Text/Narrative):: Improving. - Plan Plan (Free Text/Narrative):: No change. Start Lovenox as it appears she will not need more surgery.
[2019-02-15] MEDS: Enoxaparin 40 MG/0.4 ML Syringe SUBCUT SCH (15:03)
[2019-02-15] MEDS: Pantoprazole 40 MG Vial IVPUSH SCH (17:00)
[2019-02-15] MEDS: Clindamycin Phosphate 900 MG in Sodium Chloride 0.9% 100 ML IV SCH (17:50)
[2019-02-15] MEDS: Venlafaxine 75 MG Tab PO SCH (20:00)
[2019-02-16] MEDS: Clindamycin Phosphate 900 MG in Sodium Chloride 0.9% 100 ML IV SCH ×3 (01:00→17:27)
[2019-02-16] MEDS: Piperacillin/Tazobactam/Dext 3.375 GM in Premix Bag 1 BAG IV SCH ×4 (03:38→21:00)
[2019-02-16] MEDS ORDERED: Iohexol 647 MG/ML 50 ML SDV PO STA (03:39)
--- NOTE | 2019-02-16 04:46 | CRLCR ---
Indication: Followup perforation during EGD Comparison: None available Findings/Impression : Three views of the abdomen following the administration of oral contrast. Luminal contrast within the distal esophagus, extending to a jejunal segment, compatible with gastrojejunostomy. A small collection of apparently extraluminal contrast adjacent to a right lower quadrant jejunal segment, suggestive of extravasation, however a precontrast KUB is not submitted to assess whether this collection was present prior to contrast administration. A small collection of contrast adjacent to a pelvic small bowel segment on the 3rd image, not seen on the other images, which could represent an additional site of extravasation, although could also be related to partial opacification of a bowel segment. Correlate with additional followup images. Surgical drains, lower abdominal surgical clips and overlying skin mame. Dictated by Denzel Portillo MD @ 02/16/2019 4:44:49 AM Read by: Denzel Portillo MD @ 02/16/2019 04:44:53 jj/Dictated by: Denzel Portillo MD @ 02/16/2019 2:19:00 PM (Electronically Signed)
[2019-02-16] MEDS: D5 1/2 NS w/ 20 mEq/L KCl 1,000 ML IV SCH ×2 (05:38→20:31)
[2019-02-16] MEDS ORDERED: MVI, Adult with Vitamin K 10 ML, Thiamine 100 MG, Magnesium Sulfate 2 GM, Folic Acid 1 ... IV ONE ×15 (07:00→14:00)
--- NOTE | 2019-02-16 07:30 | PN ---
DATE OF SERVICE: 02/16/2019 SUBJECTIVE: Summer Molina is a 43-year-old female who is postoperative day #3. Dr. Clifford Rios is assuming care. Dr. Leroy Fish did her operative procedure on 02/13/2019. Pain has been controlled. Vital signs stable. Oral intakes 60 mL. She is on sips of clear liquid. Output 1550. CARLOS drain put out 15 and 40 respectively of a light pink drainage. REVIEW OF SYSTEMS: Remainder of review of systems negative for any pertinent positives and negatives. OBJECTIVE: GENERAL: Summer Molina is a 43-year-old female. She is sitting on the edge of bed, alert, orientated, comfortable. VITAL SIGNS: TPR 96.9, 70, 16, blood pressure 94/52. HEENT: Negative. NECK: Supple. HEART: Regular rate and rhythm. LUNGS: Clear. ABDOMEN: Dressing was removed. [place] intact. She has 2 CARLOS drains as above. Abdominal binder has been on. EXTREMITIES: Without peripheral edema. ASSESSMENT: 1. Laparoscopic converted to open laparotomy with lysis of adhesions, Tisse[place] fibrin sealant application applied, date of surgery 02/13/2019. 2. Esophagogastrojejunoscopy with dilation of gastrojejunostomy with a 36-[place] balloon, 02/13/2019 with pneumoperitoneum after gastro dilatation. PLAN: 1. Clear liquid diet. 2. Ensure Clear protein supplements q.i.d. 3. LR with multivitamin as ordered today one time 1 L. 4. Communication order written for 3 med cups per hour one q.24 h. record at bedside. 5. Restart home medication: a. Doxepin [place] 10 mg p.o. bedtime. b. VESIcare 5 mg tablet p.o. daily. c. Viibryd 40 mg p.o. daily. 6. Good pulmonary toilet. 7. We will evaluate p.r.n. or in a.m. Zohra Mijares PA-C /[id number]
--- NOTE | 2019-02-16 08:21 | PN ---
DATE OF SERVICE: 02/15/2019 The patient was admitted with a stricture at her gastrojejunostomy on Wednesday, underwent an upper GI endoscopy with dilation of the gastrojejunostomy. The patient had rather conservative dilation per Dr. Fish on Wednesday with a 36-[place] balloon and then the patient developed abdominal pain. CT scan showed some free air and the patient thus subsequently underwent a laparotomy followed by initial laparoscopy. No obvious perforation could be seen and the area was reinforced with fibrin sealant. A drain was placed. Since that, there has been no problematic drainage and she has been afebrile with stable vital signs. Labs today showed a white count of 9600, otherwise electrolytes are unremarkable, and clinically she has some discomfort related to the incision, but otherwise appears to be clinically stable. She is up and walking and looks fairly good. I think overnight we will let her restart her Effexor as she is feeling some need for that from a psychiatric medication standpoint and some sips of clear liquids. We will obtain an upper GI x-ray tomorrow morning. If that looks satisfactory, we will probably advance to a clear liquid diet if she clinically otherwise continues to look good. She is presently on Zosyn. I think we will add clindamycin which will additionally cover oral shena and follow things clinically from this point. Clifford Rios MD /[id number]
[2019-02-16] MEDS ORDERED: SOLIFENACIN 5 MG PO SCH (09:00)
--- NOTE | 2019-02-16 09:39 | PN ---
DATE OF SERVICE: 02/16/2019 The patient has remained afebrile with stable vital signs. Temperature is running over the last 24 hours in the 96 to 99 range, heart rates in the 70s to 80s, and blood pressure is satisfactory. Clinically, she looks fairly good with good urine output. White count is normal at 6.8, and otherwise chemistries are unremarkable. Bilirubin is up slightly at 1.3, but it is not associated with any other liver function test abnormalities. Water soluble upper GI x-ray was obtained, and the radiologist was quibbling somewhat about some possible areas of extravasation. Clinically, if these are present, they are probably draining internally. There certainly is not any significant spread around, and clinically she does not look like she has a leak, so I think, at this point, we will proceed with initiation of clear liquid diet, continue with present antibiotics, and follow things clinically from this point. Clifford Rios MD /[id number]
[2019-02-16] MEDS: Trospium 20 MG Tab PO SCH ×2 (09:40→20:09)
[2019-02-16] MEDS: Venlafaxine 75 MG Tab PO SCH ×2 (09:40→20:09)
[2019-02-16] MEDS: Vilazodone 20 MG Tab PO SCH (09:40)
[2019-02-16] MEDS ORDERED: Tamsulosin 0.4 MG Cap.ER PO ONE (15:00)
[2019-02-16] MEDS: Enoxaparin 40 MG/0.4 ML Syringe SUBCUT SCH (15:11)
[2019-02-16] MEDS: Pantoprazole 40 MG Vial IVPUSH SCH (17:27)
[2019-02-16] MEDS: Doxepin 10 MG Cap PO SCH (20:09)
[2019-02-17] MEDS: Clindamycin Phosphate 900 MG in Sodium Chloride 0.9% 100 ML IV SCH ×3 (02:23→18:20)
[2019-02-17] MEDS: Piperacillin/Tazobactam/Dext 3.375 GM in Premix Bag 1 BAG IV SCH ×4 (03:38→21:14)
[2019-02-17] MEDS: D5 1/2 NS w/ 20 mEq/L KCl 1,000 ML IV SCH (05:35)
[2019-02-17] MEDS ORDERED: Sodium Chloride 0.9% 10 ML Syringe IV PRN (07:46)
[2019-02-17] MEDS: Trospium 20 MG Tab PO SCH ×2 (08:22→21:14)
[2019-02-17] MEDS: Bisacodyl 5 MG Tab PO SCH ×2 (08:22→21:12)
[2019-02-17] MEDS: Magnesium Hydroxide 400 MG/5 ML Susp 30 ML Cup PO SCH ×2 (08:22→21:13)
[2019-02-17] MEDS: Venlafaxine 75 MG Tab PO SCH ×2 (08:22→21:12)
[2019-02-17] MEDS: Vilazodone 20 MG Tab PO SCH (08:22)
[2019-02-17] MEDS: Enoxaparin 40 MG/0.4 ML Syringe SUBCUT SCH (14:12)
[2019-02-17] MEDS: Pantoprazole 40 MG Vial IVPUSH SCH (18:21)
[2019-02-17] MEDS: Tamsulosin 0.4 MG Cap.ER PO SCH (21:12)
[2019-02-17] MEDS: Doxepin 10 MG Cap PO SCH (21:14)
[2019-02-18] MEDS: Clindamycin Phosphate 900 MG in Sodium Chloride 0.9% 100 ML IV SCH ×3 (02:51→17:20)
[2019-02-18] MEDS: Piperacillin/Tazobactam/Dext 3.375 GM in Premix Bag 1 BAG IV SCH ×4 (03:34→21:49)
[2019-02-18] MEDS: Bisacodyl 5 MG Tab PO SCH ×2 (08:15→20:45)
[2019-02-18] MEDS: Magnesium Hydroxide 400 MG/5 ML Susp 30 ML Cup PO SCH ×2 (08:15→20:46)
[2019-02-18] MEDS: Vilazodone 20 MG Tab PO SCH (08:16)
[2019-02-18] MEDS: Trospium 20 MG Tab PO SCH ×2 (08:16→20:46)
[2019-02-18] MEDS: Venlafaxine 75 MG Tab PO SCH ×2 (08:16→20:46)
--- NOTE | 2019-02-18 08:39 | PN ---
DATE OF SERVICE: 02/17/2019 The patient remains afebrile with stable vital signs. Pain control appears to be fairly good. We will switch over to oral today and saline lock her IV. We will continue the present antibiotics and we gave her some bowel stimulation. We will add some Ensure Clear to the diet today, in fact switch her over to more of a full liquid diet tomorrow, and we will tentatively aim for discharge home perhaps on Wednesday if she remains clinically improving. Clifford Rios MD /[id number]
[2019-02-18] MEDS: Potassium Chloride 20 MEQ, Lidocaine 1% 2 ML in Sodium Chloride 0.9% 100 ML IV SCH ×2 (09:03→11:07)
[2019-02-18] MEDS: Potassium Phosphates 22.5 MMOLE in Sodium Chloride 0.9% 250 ML IV SCH ×2 (13:13→16:18)
[2019-02-18] MEDS: Enoxaparin 40 MG/0.4 ML Syringe SUBCUT SCH (15:11)
[2019-02-18] MEDS ORDERED: Pantoprazole 40 MG Tab.CR PO SCH (16:00)
[2019-02-18] MEDS: Tamsulosin 0.4 MG Cap.ER PO SCH (20:46)
[2019-02-18] MEDS: Doxepin 10 MG Cap PO SCH (20:47)
[2019-02-19] MEDS: Clindamycin Phosphate 900 MG in Sodium Chloride 0.9% 100 ML IV SCH (02:06)
[2019-02-19] MEDS: Piperacillin/Tazobactam/Dext 3.375 GM in Premix Bag 1 BAG IV SCH (04:04)
[2019-02-19] MEDS: Bisacodyl 5 MG Tab PO SCH (08:29)
[2019-02-19] MEDS: Magnesium Hydroxide 400 MG/5 ML Susp 30 ML Cup PO SCH (08:29)
[2019-02-19] MEDS: Vilazodone 20 MG Tab PO SCH (08:33)
[2019-02-19] MEDS: Trospium 20 MG Tab PO SCH (08:33)
[2019-02-19] MEDS: Venlafaxine 75 MG Tab PO SCH (08:33)
--- NOTE | 2019-02-20 08:41 | PN ---
DATE OF SERVICE: 02/18/2019 The patient has been afebrile with stable vital signs. Oral intake has been fairly good, and her potassium is marginal today. We will give her some K-Phos and KCl IV. We will recheck some labs in the morning. We will go to a step 2 diet without solids with Kirt or other protein supplements 2 to 3 times a day as well. At this point, she will likely be able to be discharged home tomorrow. In terms of the big picture, we discussed with the patient, if she were to come back with a stricture once again, we would probably, at the time of dilation, place a stent to try to keep things open in a more definitive approach. Clifford Rios MD /[id number]
== END 2019-02-19 11:30 | disposition home or self-care (01) | DRG 336 ==
LOC: JP.SDS 09:47 → JP.MS 17:00
PROVIDERS: ADMIT Surgery; ATTEND Surgery
PROC: 0D7A8ZZ Dilation of Jejunum, Via Natural or Artificial Opening Endoscopic (ICD-10-PCS; principal; 2019-02-13)
PROC: 0WJP4ZZ Inspection of Gastrointestinal Tract, Percutaneous Endoscopic Approach (ICD-10-PCS; principal; 2019-02-13)
PROC: 0DNW0ZZ Release Peritoneum, Open Approach (ICD-10-PCS; principal; 2019-02-13)
PROC: 0WJP0ZZ Inspection of Gastrointestinal Tract, Open Approach (ICD-10-PCS; principal; 2019-02-13)
PROC: 0D768ZZ Dilation of Stomach, Via Natural or Artificial Opening Endoscopic (ICD-10-PCS; 2019-02-13)
DX: R13.10 Dysphagia, unspecified (principal); K66.8 Other specified disorders of peritoneum; K56.699 Other intestinal obstruction unspecified as to partial versus complete obstruction; K91.2 Postsurgical malabsorption, not elsewhere classified; F11.20 Opioid dependence, uncomplicated; K66.0 Peritoneal adhesions (postprocedural) (postinfection); K31.9 Disease of stomach and duodenum, unspecified; Z53.31 Laparoscopic surgical procedure converted to open procedure; E11.3299 Type 2 diabetes mellitus with mild nonproliferative diabetic retinopathy without macular edema, unspecified eye; E11.43 Type 2 diabetes mellitus with diabetic autonomic (poly)neuropathy; K31.89 Other diseases of stomach and duodenum; Z98.84 Bariatric surgery status; Z98.0 Intestinal bypass and anastomosis status; E53.8 Deficiency of other specified B group vitamins; E78.5 Hyperlipidemia, unspecified; E55.9 Vitamin D deficiency, unspecified; F43.10 Post-traumatic stress disorder, unspecified; F32.9 Major depressive disorder, single episode, unspecified; K59.09 Other constipation
CPT/HCPCS: 36415; 43245; 71260 ×2; 74177 ×2; 74360; 80053; 85027; 86850; 86900; 86901; J0330; J0690; J1100; J2250; J2405; J2704 ×2; J2710; J3010 ×3; J3410; J3411; J3420; J3490; J7030; J7120 ×2; 74240; 80048; 81001; 83735; 84100; 87040; 94762; A9270-GY; C9113; J1170; J1200; J1650; J2001; J2543; J3475; J3480; J7050; Q9967

== ENCOUNTER 2019-03-02 08:15 | Inpatient (IN) | payer MEDICARE, MEDICAID ==
[2019-03-02] MEDS ORDERED: ceFAZolin 2 GM in Premix Bag 1 BAG IV ONE (08:30)
[2019-03-02] MEDS ORDERED: MVI, Adult with Vitamin K 10 ML, Thiamine 100 MG, Chromium/Copper/Mang/Selen/Zn 1 ML in... IV ONE ×4 (08:30)
[2019-03-02] MEDS ORDERED: Glycopyrrolate 0.2 MG/ML 2 ML SDV IVPUSH ONE (08:30)
[2019-03-02] MEDS: Scopolamine 1.5 MG Transdermal Patch TOP SCH (09:36)
[2019-03-02] MEDS ORDERED: fentaNYL 100 MCG/2 ML SDV ONE (10:22)
[2019-03-02] MEDS ORDERED: Dexamethasone 4 MG/ML SDV ONE (10:23)
[2019-03-02] MEDS ORDERED: Ondansetron 4 MG/2 ML SDV ONE (10:23)
[2019-03-02] MEDS ORDERED: Rocuronium 50 MG/5 ML Vial ONE (10:23)
[2019-03-02] MEDS ORDERED: Propofol 200 MG/20 ML SDV ONE (10:23)
[2019-03-02] MEDS ORDERED: Succinylcholine 200 MG/10 ML MDV ONE (10:23)
[2019-03-02] MEDS ORDERED: HYDROmorphone/Normal Saline 15 MG/30 ML PCA IV PRN (11:27)
[2019-03-02] MEDS ORDERED: Hyoscyamine 0.125 MG Tab.SL SL PRN (11:27)
[2019-03-02] MEDS ORDERED: Naloxone 0.4 MG/ML SDV IVPUSH PRN (11:27)
[2019-03-02] MEDS ORDERED: Benzocaine/Cetylpyridinium/Menthol Lozenge MUCMEM PRN (11:28)
[2019-03-02] MEDS ORDERED: Phenol/Sodium Phenolate Spray 180 ML Bottle MUCMEM PRN (11:28)
[2019-03-02] MEDS: Dextrose 5%-Lactated Ringers 1,000 ML IV SCH ×2 (11:38→19:58)
[2019-03-02] MEDS: Pantoprazole 40 MG Vial IV SCH (14:40)
[2019-03-02] MEDS: ceFAZolin 2 GM in Premix Bag 1 BAG IV SCH ×2 (16:05→23:50)
[2019-03-02] MEDS: Ondansetron 4 MG/2 ML SDV IVPUSH PRN ×2 (16:24→20:35)
[2019-03-02] MEDS: Venlafaxine 75 MG Tab PO SCH (20:36)
[2019-03-02] MEDS: Trospium 20 MG Tab PO SCH (20:37)
[2019-03-02] MEDS: Doxepin 10 MG Cap PO SCH (20:37)
[2019-03-03] MEDS: Ondansetron 4 MG/2 ML SDV IVPUSH PRN (05:47)
[2019-03-03] MEDS ORDERED: Metoclopramide 10 MG/2 ML SDV IV ONE (07:10)
[2019-03-03] MEDS: ceFAZolin 2 GM in Premix Bag 1 BAG IV SCH ×3 (07:12→23:47)
[2019-03-03] MEDS: Trospium 20 MG Tab PO SCH ×2 (09:41→20:39)
[2019-03-03] MEDS: Venlafaxine 75 MG Tab PO SCH ×2 (09:41→20:38)
[2019-03-03] MEDS: Aspirin 81 MG Tab.EC PO SCH (09:41)
[2019-03-03] MEDS: Vilazodone 20 MG Tab PO SCH (09:41)
[2019-03-03] MEDS: Metoclopramide 10 MG/2 ML SDV IVPUSH SCH ×3 (12:02→21:48)
[2019-03-03] MEDS: Acetaminophen/HYDROcodone 108-2.5 MG/5 ML Soln 15 ML UD Cup PO PRN ×2 (12:07→21:47)
[2019-03-03] MEDS: Ondansetron 4 MG Tab.DIS PO PRN ×2 (12:08→20:18)
--- NOTE | 2019-03-03 13:05 | PCM.SURGPN ---
- General Info Date of Service: 03/03/19 Date of Surgery/Procedure: 03/02/19 POD#: 1 Functional Status: Reports: Ambulating - Review of Systems General: Reports: No Symptoms HEENT: Reports: No Symptoms Pulmonary: Reports: No Symptoms Cardiovascular: Reports: No Symptoms Gastrointestinal: Reports: Nausea, Vomiting Genitourinary: Reports: No Symptoms Musculoskeletal: Reports: No Symptoms Skin: Reports: No Symptoms Neurological: Reports: No Symptoms Psychiatric: Reports: No Symptoms Systems Review Comment:: Summer Molina is a 43 year old female who is on postoperative day #1. She is experiencing nausea and episodes of emesis. She was up and ambulating this AM but has to stop due to feeling nauseated. Vital signs are stable. Pain is controlled. - Patient Data Vitals - Most Recent: Last Vital Signs Temp 37.0 C 03/03/19 10:49 Pulse 84 03/03/19 10:49 Resp 16 03/03/19 10:49 BP 138/85 03/03/19 10:49 Pulse Ox 100 03/03/19 10:49 Weight - Most Recent: 110.223 kg I&O - Last 24 Hours: Intake & Output 03/02/19 03/03/19 03/03/19 22:59 06:59 14:59 Intake Total 685 50 110 Output Total 716 141 4760 Balance 10 300 -1315 Med Orders - Current: Current Medications Hydrocodone Bitart/Acetaminophen (Acetaminophen/Hydrocodone 108-2.5 Mg/5 Ml) 15 ml PO Q4H PRN PRN Reason: PAIN Last Admin: 03/03/19 12:07 Dose: 15 ml Aspirin (Halfprin) 81 mg PO DAILY [facility] Last Admin: 03/03/19 09:41 Dose: 81 mg Benzocaine/Menthol (Cepacol Sore Throat) 1 lozenge MUCMEM ASDIRECTED PRN PRN Reason: ESOPHAGEAL SORENESS Doxepin HCl (Sinequan) 10 mg PO BEDTIME [facility] Last Admin: 03/02/19 20:37 Dose: 10 mg Hyoscyamine (Hyomax-Sl) 0.125 mg SL Q4H PRN PRN Reason: ESOPHAGEAL SPASM Last Admin: 03/02/19 20:36 Dose: 0.125 mg Cefazolin Sodium/Dextrose 2 gm (/ Premix) 50 mls @ 100 mls/hr IV Q8H [facility] Last Admin: 03/03/19 07:12 Dose: 100 mls/hr Dextrose/Lactated Ringer's (Dextrose 5%-Lactated Ringers) 1,000 mls @ 100 mls/ hr IV ASDIRECTED [facility] Metoclopramide HCl (Reglan) 10 mg IVPUSH Q6H [facility] Last Admin: 03/03/19 12:02 Dose: 10 mg Naloxone HCl (Narcan) 0.1 mg IVPUSH Q2M PRN PRN Reason: Respiratory Distress Scopolamine Patch (Check) 1 each TOP DAILY [facility] Ondansetron HCl (Zofran) 4 mg IVPUSH Q4H PRN PRN Reason: Nausea Last Admin: 03/03/19 05:47 Dose: 4 mg Ondansetron HCl (Zofran Odt) 4 mg PO Q4H PRN PRN Reason: Nausea/Vomiting Last Admin: 03/03/19 12:08 Dose: 4 mg Pantoprazole Sodium (Protonix Iv) 40 mg IV Q24H [facility] Last Admin: 03/02/19 14:40 Dose: 40 mg Phenol (Phenaseptic Liquid) 0 ml MUCMEM ASDIRECTED PRN PRN Reason: ESOPHAGEAL SORENESS Scopolamine (Transderm-Scop) 1.5 mg TOP Q72H [facility] Last Admin: 03/02/19 09:36 Dose: 1.5 mg Trospium (Sanctura) 20 mg PO BID [facility] Last Admin: 03/03/19 09:41 Dose: 20 mg Venlafaxine HCl (Effexor) 75 mg PO BID [facility] Last Admin: 03/03/19 09:41 Dose: 75 mg Vilazodone HCl (Viibryd) 40 mg PO DAILY [facility] Last Admin: 03/03/19 09:41 Dose: 40 mg Discontinued Medications Dexamethasone (Dexamethasone) Confirm Administered Dose 4 mg .ROUTE .STK-MED ONE Stop: 03/02/19 10:24 Fentanyl (Sublimaze) Confirm Administered Dose 100 mcg .ROUTE .STK-MED ONE Stop: 03/02/19 10:23 Glycopyrrolate (Glycopyrrolate) 0.4 mg IVPUSH ONETIME ONE Stop: 03/02/19 08:31 Last Admin: 03/02/19 10:26 Dose: 0.4 mg Hydromorphone HCl (Dilaudid Television Agent 15 Mg In Ns 30 Ml) 0 mg IV ASDIRECTED PRN; Protocol PRN Reason: Pain Last Admin: 03/02/19 11:40 Dose: 0.4 mg Cefazolin Sodium/Dextrose 2 gm (/ Premix) 50 mls @ 100 mls/hr IV ONETIME ONE Stop: 03/02/19 08:59 Last Admin: 03/02/19 10:25 Dose: 100 mls/hr Multivitamins/Minerals 10 ml/Thiamine HCl 100 mg/ Chromium/Copper/Manganese/ Seleni/Zn 1 ml/ Lactated Ringer's 1,012 mls @ 500 mls/hr IV ONETIME ONE Stop: 03/02/19 10:31 Last Admin: 03/02/19 09:35 Dose: 500 mls/hr Dextrose/Lactated Ringer's (Dextrose 5%-Lactated Ringers) 1,000 mls @ 125 mls/ hr IV ASDIRECTED [facility] Last Admin: 03/02/19 19:58 Dose: 125 mls/hr Metoclopramide HCl (Reglan) 10 mg IV ONETIME ONE Stop: 03/03/19 07:11 Last Admin: 03/03/19 07:53 Dose: 10 mg Ondansetron HCl (Zofran) Confirm Administered Dose 4 mg .ROUTE .STK-MED ONE Stop: 03/02/19 10:24 Propofol (Diprivan 20 Ml) Confirm Administered Dose 200 mg .ROUTE .STK-MED ONE Stop: 03/02/19 10:24 Rocuronium Carpenter (Zemuron) Confirm Administered Dose 50 mg .ROUTE .STK-MED ONE Stop: 03/02/19 10:24 Succinylcholine Chloride (Quelicin) Confirm Administered Dose 200 mg .ROUTE .STK -MED ONE Stop: 03/02/19 10:24 - Exam General: Alert, Oriented HEENT: Pupils Equal Neck: Supple Lungs: Clear to Auscultation, Normal Respiratory Effort Cardiovascular: Regular Rate, Regular Rhythm Extremities: Normal Inspection Skin: Warm, Dry, Intact Neurological: No New Focal Deficit Psy/Mental Status: Alert - Problem List Review Problem List Initiated/Reviewed/Updated: Yes - My Orders Last 24 Hours: Active Orders 24 hr Category Date Time Status Ambulate [RC] ASDIRECTED Care 03/02/19 12:46 Active Communication Order [RC] ASDIRECTED Care 03/03/19 08:46 Active Communication Order [RC] BID Care 03/02/19 13:11 Active Communication Order [RC] Q6HR Care 03/02/19 13:07 Active Dietary Supplements [RC] TIDMEALS Care 03/02/19 13:04 Active Head of Bed Elevation [RC] ASDIRECTED Care 03/02/19 13:06 Active Intake and Output [RC] QSHIFT Care 03/02/19 13:02 Active May Shower [RC] ASDIRECTED Care 03/03/19 08:47 Active Pneumonia Education [RC] UPON Care 03/02/19 12:46 Active RT Incentive Spirometry [RC] Q1HWA Care 03/02/19 12:46 Active Turn, Cough, Deep Breathe [RC] Q1HWA Care 03/02/19 12:46 Active Up With Assistance [RC] ASDIRECTED Care 03/02/19 12:46 Active Up to Chair [RC] TIDMEALS Care 03/02/19 12:46 Active Vital Signs [RC] Q4H Care 03/02/19 12:46 Active Respiratory Care Assess and Treatment [CONS] Routine Cons 03/02/19 12:46 Active Aspirin [Halfprin] Med 03/03/19 09:00 Active 81 mg PO DAILY Dextrose 5%-Lactated Ringers 1,000 ml Med 03/03/19 08:42 Active IV ASDIRECTED Doxepin [SINEquan] Med 03/02/19 21:00 Active 10 mg PO BEDTIME Metoclopramide [Reglan] Med 03/03/19 10:00 Active 10 mg IVPUSH Q6H Non-Formulary Medication [NF Drug] Med 03/03/19 14:00 Active 1 each TOP DAILY Ondansetron [Zofran ODT] Med 03/03/19 08:44 Active 4 mg PO Q4H PRN Pantoprazole [ProTONIX IV] Med 03/02/19 14:00 Active 40 mg IV Q24H Trospium [Sanctura] Med 03/02/19 21:00 Active 20 mg PO BID Venlafaxine [Effexor] Med 03/02/19 21:00 Active 75 mg PO BID Vilazodone [Viibryd] Med 03/03/19 09:00 Active 40 mg PO DAILY ceFAZolin [Ancef] 2 gm Med 03/02/19 16:00 Active Premix Bag 1 bag IV Q8H Oral Care [OM.PC] BID Oth 03/02/19 13:00 Ordered Oral Care [OM.PC] BID Oth 03/03/19 13:00 Ordered Resuscitation Status Routine Resus Stat 03/02/19 12:46 Ordered Medication Orders Hydrocodone Bitart/Acetaminophen (Acetaminophen/Hydrocodone 108-2.5 Mg/5 Ml) 15 ml PO Q4H PRN PRN Reason: PAIN Last Admin: 03/03/19 12:07 Dose: 15 ml Aspirin (Halfprin) 81 mg PO DAILY [facility] Last Admin: 03/03/19 09:41 Dose: 81 mg Benzocaine/Menthol (Cepacol Sore Throat) 1 lozenge MUCMEM ASDIRECTED PRN PRN Reason: ESOPHAGEAL SORENESS Doxepin HCl (Sinequan) 10 mg PO BEDTIME [facility] Last Admin: 03/02/19 20:37 Dose: 10 mg Hyoscyamine (Hyomax-Sl) 0.125 mg SL Q4H PRN PRN Reason: ESOPHAGEAL SPASM Last Admin: 03/02/19 20:36 Dose: 0.125 mg Cefazolin Sodium/Dextrose 2 gm (/ Premix) 50 mls @ 100 mls/hr IV Q8H [facility] Last Admin: 03/03/19 07:12 Dose: 100 mls/hr Infusion: 03/03/19 00:20 Dose: 100 mls/hr Admin: 03/02/19 23:50 Dose: 100 mls/hr Infusion: 03/02/19 16:35 Dose: 100 mls/hr Admin: 03/02/19 16:05 Dose: 100 mls/hr Dextrose/Lactated Ringer's (Dextrose 5%-Lactated Ringers) 1,000 mls @ 100 mls/ hr IV ASDIRECTED [facility] Metoclopramide HCl (Reglan) 10 mg IVPUSH Q6H [facility] Last Admin: 03/03/19 12:02 Dose: 10 mg Naloxone HCl (Narcan) 0.1 mg IVPUSH Q2M PRN PRN Reason: Respiratory Distress Scopolamine Patch (Check) 1 each TOP DAILY [facility] Ondansetron HCl (Zofran) 4 mg IVPUSH Q4H PRN PRN Reason: Nausea Last Admin: 03/03/19 05:47 Dose: 4 mg Admin: 03/02/19 20:35 Dose: 4 mg Admin: 03/02/19 16:24 Dose: 4 mg Ondansetron HCl (Zofran Odt) 4 mg PO Q4H PRN PRN Reason: Nausea/Vomiting Last Admin: 03/03/19 12:08 Dose: 4 mg Pantoprazole Sodium (Protonix Iv) 40 mg IV Q24H [facility] Last Admin: 03/02/19 14:40 Dose: 40 mg Phenol (Phenaseptic Liquid) 0 ml MUCMEM ASDIRECTED PRN PRN Reason: ESOPHAGEAL SORENESS Scopolamine (Transderm-Scop) 1.5 mg TOP Q72H [facility] Last Admin: 03/02/19 09:36 Dose: 1.5 mg Trospium (Sanctura) 20 mg PO BID [facility] Last Admin: 03/03/19 09:41 Dose: 20 mg Admin: 03/02/19 20:37 Dose: 20 mg Venlafaxine HCl (Effexor) 75 mg PO BID [facility] Last Admin: 03/03/19 09:41 Dose: 75 mg Admin: 03/02/19 20:36 Dose: 75 mg Vilazodone HCl (Viibryd) 40 mg PO DAILY [facility] Last Admin: 03/03/19 09:41 Dose: 40 mg - Assessment Assessment (Free Text/Narrative):: Recurrent esophageal stricture 1. Upper Gastrointestinal Endoscopy a. Dilation of gastrojejunostomy to 30 Surinamese dilation b. placement of stent across the gastrojejunostomy to 36 dominican dilation Clifford Rios MD date of procedure: 03/02/19 - Plan Plan (Free Text/Narrative):: 1. Stay in the hospital today to check for oral intake 2. Initiate full liquid diet 3. Discontinue parental control analgesia 4. Administer Reglan IV 10 mg push stat 5. Scheduled Reglan IV 10 mg every 6 hours 6. Communication written that she may switch to Zofran 4 mg PRN for home medication regimen 6. Will recheck in AM or PRN
[2019-03-03] MEDS: SCOPOLAMINE PATCH CHECK TOP SCH (13:54)
[2019-03-03] MEDS: Dextrose 5%-Lactated Ringers 1,000 ML IV SCH ×2 (13:55→23:49)
[2019-03-03] MEDS: Pantoprazole 40 MG Vial IV SCH (13:57)
[2019-03-03] MEDS: Doxepin 10 MG Cap PO SCH (20:38)
[2019-03-04] MEDS: Metoclopramide 10 MG/2 ML SDV IVPUSH SCH (05:11)
[2019-03-04] MEDS: Vilazodone 20 MG Tab PO SCH (08:48)
[2019-03-04] MEDS: Venlafaxine 75 MG Tab PO SCH ×2 (08:49→20:31)
[2019-03-04] MEDS: Trospium 20 MG Tab PO SCH ×2 (08:49→20:32)
[2019-03-04] MEDS: Aspirin 81 MG Tab.EC PO SCH (08:49)
[2019-03-04] MEDS: SCOPOLAMINE PATCH CHECK TOP SCH (08:50)
[2019-03-04] MEDS: Metoclopramide 10 MG Tab PO SCH ×3 (10:11→21:33)
[2019-03-04] MEDS: Ondansetron 4 MG Tab.DIS PO PRN ×2 (14:20→20:32)
[2019-03-04] MEDS: ceFAZolin 2 GM in Premix Bag 1 BAG IV SCH (14:53)
[2019-03-04] MEDS: Acetaminophen/HYDROcodone 108-2.5 MG/5 ML Soln 15 ML UD Cup PO PRN (20:32)
[2019-03-04] MEDS: Doxepin 10 MG Cap PO SCH (20:32)
[2019-03-05] MEDS: Metoclopramide 10 MG Tab PO SCH ×2 (04:00→09:39)
[2019-03-05] MEDS ORDERED: Pneumococcal Polyvalent-23 Vaccine 0.5 ML SDV IM ONE (09:00)
[2019-03-05] MEDS: Venlafaxine 75 MG Tab PO SCH (09:38)
[2019-03-05] MEDS: Scopolamine 1.5 MG Transdermal Patch TOP SCH (09:39)
[2019-03-05] MEDS: Aspirin 81 MG Tab.EC PO SCH (09:39)
[2019-03-05] MEDS: Trospium 20 MG Tab PO SCH (09:44)
[2019-03-05] MEDS: Vilazodone 20 MG Tab PO SCH (09:44)
[2019-03-05] MEDS: SCOPOLAMINE PATCH CHECK TOP SCH (09:44)
--- NOTE | 2019-03-05 18:02 | PN ---
DATE OF SERVICE: 03/04/2019 The patient has been afebrile with stable vital signs. No major problems were noted overnight. The nausea is much better and she has obviously taken adequate oral intake. We will switch over to strictly oral regimen today, switching Reglan to oral specifically and we will make sure to maintain adequate oral intake. She may be ready for discharge home tomorrow. Clifford Rios MD /[id number]
--- NOTE | 2019-03-07 10:27 | OR ---
DATE OF PROCEDURE: 03/02/2019 PREOPERATIVE DIAGNOSIS: Recurrent stricturing at gastrojejunostomy. POSTOPERATIVE DIAGNOSIS: Recurrent stricturing at gastrojejunostomy. OPERATIVE PROCEDURE: Upper GI endoscopy with: 1. Dilation of gastrojejunostomy. 2. Placement of covered stent across gastrojejunostomy (12799). ANESTHESIA: General. SOFTWARE TESTING SPECIALIST: PAS. Claus INDICATION FOR PROCEDURE: This is a 43-year-old, status post open Pineda-en-Y gastric bypass, presenting with recurrent stricturing at the gastrojejunostomy. As discussed previously, when she presents with recurrence, at this time, the plan will be to proceed with dilatation and covered stent placement to try to hold this area open. Potential risks including bleeding and perforation, aspiration following the stent placement, possible migration of the stent requiring operative procedure for removal were all reviewed, and the patient wishes to proceed. DETAILS OF PROCEDURE: The patient was taken to the operating room and placed in a left lateral decubitus position. After general endotracheal anesthesia was induced, the upper GI endoscope was passed orally through the length of the esophagus and down to the area of the gastrojejunostomy. The patient was noted to have recurrent stricture at that level measuring around 4 to 5 mm in diameter. Additionally, Bard gastrointestinal catheter was then inflated to 30-Telugu over the stricture. This allowed, upon removal of the dilator, passage of the scope through the anastomosis. A guidewire was then placed well into the Pineda limb and left in place as the gastroscope was removed. An Endomax covered stent was then, using fluoroscopic control, deployed across the center of the anastomosis. This stent was at a center diameter of 19 mm and the end flanges were 23 mm and opened up quite nicely. The gastroscope was then passed, and once again good placement of the stent was confirmed. We then felt that we could dilate this somewhat further, and with the stent in place, the area was dilated to 36-Telugu size, and at that point, there appeared to be some increased luminal diameter. The scope was then withdrawn. Procedure concluded. There were no evident complications. Clifford Rios MD /[id number]
--- NOTE | 2019-03-07 11:24 | DISCH ---
FINAL DIAGNOSES: 1. Recurrent stricturing at the gastrojejunostomy. 2. Status post Pineda-en-Y gastric bypass. 3. History of type 2 diabetes mellitus, now in remission. 4. History of post-traumatic stress disorder. OPERATIVE PROCEDURE: Upper gastrointestinal endoscopy with dilation of gastrojejunostomy followed by placement of covered stent across the gastrojejunostomy. SUMMARY: This 43-year-old female is status post revision of Pineda-en-Y gastric bypass, presenting with recurrent stricturing at her gastrojejunostomy. At the most recent stricture dilation, she had a perforation which required a laparotomy for management. The plan at this point will be to dilate the stricture, then place a covered stent, and hopefully leave that in for somewhere in the range of 3 weeks. This was done on the date of admission. Initially, the patient had quite a bit of nausea, but this has now resolved with the aid of Zofran and Reglan, along with a scopolamine patch, and she is taking in the step 2 or full liquid diet without difficulty, along with protein supplements. Otherwise, she should be continued on her usual medications, along with vitamins and other supplements, plus a scopolamine patch which will be replaced at the time of discharge and instructed to keep that on until 03/09/2019, and then additional medications include Zofran 4 mg ODT q.4 hours p.r.n. nausea #30 and Reglan 10 mg p.o. q.i.d. #120. She will be following up with Zohra Mijares at [facility] on 03/13/2019 at 11:00 a.m.
== END 2019-03-05 11:30 | disposition home or self-care (01) | DRG 394 ==
LOC: JP.SDS 08:15 → JP.2SS 11:00 → JP.SDS 03-04 07:59 → JP.2SS 03-04 08:00 → JP.MS 03-04 13:21
PROVIDERS: ADMIT Surgery; ATTEND Surgery
PROC: 0D768DZ Dilation of Stomach with Intraluminal Device, Via Natural or Artificial Opening Endoscopic (ICD-10-PCS; principal; 2019-03-02)
PROC: 0D7 Gastrointestinal System, Dilation (ICD-10-PCS; 2019-03-02)
DX: K95.89 Other complications of other bariatric procedure (principal); K56.690 Other partial intestinal obstruction; F11.20 Opioid dependence, uncomplicated; K91.2 Postsurgical malabsorption, not elsewhere classified; K31.89 Other diseases of stomach and duodenum; Y83.2 Surgical operation with anastomosis, bypass or graft as the cause of abnormal reaction of the patient, or of later complication, without mention of misadventure at the time of the procedure; R13.10 Dysphagia, unspecified; E11.43 Type 2 diabetes mellitus with diabetic autonomic (poly)neuropathy; E53.8 Deficiency of other specified B group vitamins; E53.9 Vitamin B deficiency, unspecified; E55.9 Vitamin D deficiency, unspecified; E50.9 Vitamin A deficiency, unspecified; Z85.42 Personal history of malignant neoplasm of other parts of uterus; Z90.710 Acquired absence of both cervix and uterus; Z90.79 Acquired absence of other genital organ(s); Z90.722 Acquired absence of ovaries, bilateral; F43.10 Post-traumatic stress disorder, unspecified; F32.9 Major depressive disorder, single episode, unspecified; Z79.82 Long term (current) use of aspirin; K59.09 Other constipation; Z98.84 Bariatric surgery status; Z98.0 Intestinal bypass and anastomosis status
CPT/HCPCS: 36415; 76000; 80053; 83735; 84100; 85027; 90732; 94762; A9270-GY; C1874; C9113; J0330; J0690; J1100; J1170; J2405; J2704; J2765; J3010; J3411; J3490; J7042; J7120

== ENCOUNTER 2019-03-17 08:31 | Day surgery (SDC) | payer MEDICARE, MEDICAID ==
[~2019-03-17 08:31] MED LIST changes: -Cyanocobalamin (Vitamin B12) 1,000 MCG/ML SDV IM ONE; -Glycopyrrolate 0.2 MG/ML 2 ML SDV IVPUSH ONE; -Lactated Ringers 1,000 ML IV SCH; +MVI, Adult with Vitamin K 10 ML, Thiamine 100 MG, Chromium/Copper/Mang/Selen/Zn 1 ML in... IV ONE
[2019-03-17] MEDS ORDERED: Midazolam 1 MG/ML 2 ML SDV ONE (08:57)
[2019-03-17] MEDS ORDERED: fentaNYL 100 MCG/2 ML SDV ONE (08:57)
[2019-03-17] MEDS ORDERED: Propofol 200 MG/20 ML SDV ONE (08:57)
[2019-03-17] MEDS ORDERED: Glycopyrrolate 0.2 MG/ML 2 ML SDV IVPUSH ONE (09:00)
[2019-03-17] MEDS ORDERED: ceFAZolin 2 GM in Premix Bag 1 BAG IV ONE (09:15)
[2019-03-17] MEDS ORDERED: Scopolamine 1.5 MG Transdermal Patch TOP ONE (09:15)
[2019-03-17] MEDS ORDERED: Rocuronium 50 MG/5 ML Vial ONE (09:52)
[2019-03-17] MEDS ORDERED: Succinylcholine 200 MG/10 ML MDV ONE (09:52)
[2019-03-17] MEDS ORDERED: Ondansetron 4 MG/2 ML SDV ONE (09:52)
[2019-03-17] MEDS ORDERED: Dexamethasone 4 MG/ML SDV ONE (09:52)
[2019-03-17] MEDS ORDERED: Dextrose 5%-Lactated Ringers 1,000 ML IV SCH ×2 (10:00→14:00)
[2019-03-17] MEDS ORDERED: Ondansetron 4 MG/2 ML SDV IVPUSH PRN (13:52)
[2019-03-17] MEDS ORDERED: Metoclopramide 10 MG/2 ML SDV IV PRN (14:33)
[2019-03-17] MEDS ORDERED: oxyCODONE 5 MG Tab PO PRN (14:33)
[2019-03-17] MEDS ORDERED: Pantoprazole 40 MG Vial IV SCH (16:00)
[2019-03-17] MEDS: VERIFY SCOP PATCH TOP SCH (16:14)
[2019-03-17] MEDS: Venlafaxine 75 MG Tab PO SCH (20:33)
[2019-03-17] MEDS ORDERED: Doxepin 10 MG Cap PO SCH (21:00)
[2019-03-18] MEDS: Venlafaxine 75 MG Tab PO SCH (08:51)
[2019-03-18] MEDS ORDERED: Vilazodone 20 MG Tab PO SCH (09:00)
[2019-03-18] MEDS ORDERED: Aspirin 81 MG Tab.EC PO SCH (09:00)
[2019-03-18] MEDS: VERIFY SCOP PATCH TOP SCH (09:14)
--- NOTE | 2019-03-19 12:38 | DISCH ---
FINAL DIAGNOSIS: Status post gastroesophageal stent placement. SECONDARY DIAGNOSES: 1. Bariatric surgery stent status. 2. carcinoma. 3. History of type 2 diabetes mellitus, now in remission. OPERATIVE PROCEDURE: Done on 03/18: Upper GI endoscopy with removal of gastroesophageal stent. SUMMARY: This is a 43-year-old who is status post Pineda-en-Y gastric bypass, presenting with recurrent stricturing recently and had a stent placed. This has been present for about 2 weeks and at this point, the patient having quite a bit of problems with nausea and on admission, the stent was removed. The area of stricture at this point reveals well treated and the area is quite wide open. The patient will be sent home on a step 3 diet today. Follow up with Zohra Mijares at [facility] on 03/27/2019 and she will have rest of the present home medications.
--- NOTE | 2019-03-20 07:27 | OR ---
DATE OF PROCEDURE: 03/17/2019 PREOPERATIVE DIAGNOSIS: Status post esophagogastric stent placement. POSTOPERATIVE DIAGNOSIS: Status post esophagogastric stent placement. OPERATIVE PROCEDURE: Upper GI endoscopy with removal of esophagogastric stent ([id number]). ANESTHESIA: General. POLICE CHIEF DEPUTY: ROBERTO Devlin. INDICATION FOR PROCEDURE: This is a 43-year-old status post a stent placement for problems related to recurrent stricturing at the gastrojejunostomy. At this point, the patient has become increasingly intolerance to that with ongoing nausea. Plan is to proceed with upper GI endoscopy with removal of stent. Potential risks including bleeding and perforation were discussed, and the patient wishes to proceed. DETAILS OF PROCEDURE: The patient was taken to the operating room, and after general endotracheal anesthesia was induced, placed in a left lateral decubitus position. Upper GI endoscope was advanced orally through the length of the esophagus and the area of the stent was then identified. The stent remained in good position across the gastrojejunostomy, and at that point, the wire of the proximal end of the stent was grasped with Rat Tooth forceps and the stent was removed with pursestring effect in the proximal end of the stent being visualized and stent was then removed without difficulty. The upper endoscope was then reinserted and the area of the gastrojejunostomy was noted to be quite widely patent, and no complications were evident. The patient was taken to the recovery room in satisfactory condition. Clifford Rios MD /[id number]
== END 2019-03-18 09:15 | disposition home or self-care (01) ==
LOC: JP.SDS 08:31 → JP.MS 10:40 → JP.SDS 03-18 08:30
PROVIDERS: ATTEND Surgery
DX: T85.898A Other specified complication of other internal prosthetic devices, implants and grafts, initial encounter (principal); R11.0 Nausea; K22.4 Dyskinesia of esophagus; E78.5 Hyperlipidemia, unspecified; K21.9 Gastro-esophageal reflux disease without esophagitis; K91.2 Postsurgical malabsorption, not elsewhere classified; E11.43 Type 2 diabetes mellitus with diabetic autonomic (poly)neuropathy; E11.3299 Type 2 diabetes mellitus with mild nonproliferative diabetic retinopathy without macular edema, unspecified eye; E53.9 Vitamin B deficiency, unspecified; E55.9 Vitamin D deficiency, unspecified; E66.01 Morbid (severe) obesity due to excess calories; Z68.39 Body mass index [BMI] 39.0-39.9, adult; Z98.84 Bariatric surgery status; Z79.899 Other long term (current) drug therapy
CPT/HCPCS: 36415; 43247; 80053; 83735; 84100; 85027; 94762; A9270; C9113; J0330; J0690; J1100; J2250; J2405; J2704; J3010; J3411; J3490; J7042; J7120

== ENCOUNTER 2019-04-14 09:00 | Day surgery (SDC) | payer MEDICARE, MEDICAID ==
[2019-04-14] MEDS ORDERED: Glycopyrrolate 0.2 MG/ML 2 ML SDV IVPUSH ONE (09:15)
[2019-04-14] MEDS ORDERED: Lactated Ringers 1,000 ML IV SCH (09:15)
[2019-04-14] MEDS ORDERED: Cyanocobalamin (Vitamin B12) 1,000 MCG/ML SDV SUBCUT ONE (09:15)
[2019-04-14] MEDS ORDERED: MVI, Adult with Vitamin K 10 ML, Thiamine 200 MG, Chromium/Copper/Mang/Selen/Zn 1 ML in... IV ONE ×4 (10:00)
[2019-04-14] MEDS ORDERED: Propofol 200 MG/20 ML SDV ONE (11:08)
[2019-04-14] MEDS ORDERED: Midazolam 1 MG/ML 2 ML SDV ONE (11:08)
[2019-04-14] MEDS ORDERED: fentaNYL 100 MCG/2 ML SDV ONE (11:08)
[2019-04-14] MEDS ORDERED: Dexamethasone 4 MG/ML SDV ONE (11:40)
--- NOTE | 2019-04-17 15:40 | OR ---
DATE OF PROCEDURE: 04/14/2019 PREOPERATIVE DIAGNOSIS: Probable stricture at gastrojejunostomy. POSTOPERATIVE DIAGNOSES: 1. Stricture at gastrojejunostomy. 2. Foreign body at gastrojejunostomy (ingested food). OPERATIVE PROCEDURE: Upper gastrointestinal endoscopy with: 1. Dilation of gastrojejunostomy (27151). 2. Removal of foreign body above the gastrojejunostomy (70848). ANESTHESIA: IV sedation. INDICATIONS FOR PROCEDURE: The patient presents once again with probable stricturing at the gastrojejunostomy. Plan is to proceed with upper GI endoscopy with dilation as indicated. Potential risks including bleeding and perforation were discussed and the patient wishes to proceed. DETAILS OF PROCEDURE: The patient was taken to the operating room and placed in a left lateral decubitus position. IV sedation was administered after which the upper GI endoscope was passed orally through the length of the esophagus and into the area of the gastrojejunostomy. There was a yellowish square food item of uncertain nature, which was present above the esophagogastric junction which was also then stricturing down to roughly around 4 mm to 5 mm in size. A Bard gastrointestinal balloon catheter was centered across the anastomosis and inflated to 30-Icelandic size. This was held in position for 1 minute, after which balloon catheter was deflated and withdrawn. Satisfactory dilation was accomplished. The food item was still not able to be pushed through that area, and given this was encircled with an endoscopic net and retrieved. At that point, the patient was taken to the recovery room in satisfactory condition. There were no evident complications. The patient will be given Decadron in the operating room and then we will give a course of Medrol Dosepak to try to limit the inflammatory response and recurrent stricture formation. Clifford Rios MD /[id number]
== END 2019-04-14 13:10 | disposition home or self-care (01) ==
LOC: JP.SDS 09:00
PROVIDERS: ATTEND Surgery
DX: K95.89 Other complications of other bariatric procedure (principal); T18.2XXA Foreign body in stomach, initial encounter; K21.9 Gastro-esophageal reflux disease without esophagitis; K91.2 Postsurgical malabsorption, not elsewhere classified; E11.3299 Type 2 diabetes mellitus with mild nonproliferative diabetic retinopathy without macular edema, unspecified eye; E53.8 Deficiency of other specified B group vitamins; E55.9 Vitamin D deficiency, unspecified; F43.10 Post-traumatic stress disorder, unspecified; Z79.82 Long term (current) use of aspirin; Z79.899 Other long term (current) drug therapy
CPT/HCPCS: 43245; 43247; 81025; J1100; J2250; J2704; J3010; J3411; J3420; J3490; J7120